=== PATIENT | female | born 1965 | race Caucasian/White ===

== ENCOUNTER 2022-08-18 16:28 | Emergency (ER) | payer BC, SELFPAY ==
--- NOTE | ~2022-08-18 | CT_ITS ---
EXAMINATION: CT lumbar spine wo con DATE: 08/18/2022 17:38 INDICATION: Chronic back pain worsening in the last few days TECHNIQUE: Computed tomography (CT) of the lumbar spine was performed without intravenous contrast. T he dose Jan The dose-length product was 1226.82 mGy-cm. COMPARISON: 02/20/2013 FINDINGS: Alignment is normal. Chronic minimal likely physiologic anterior wedging at T11 and T12. Lumbar verte bral body heights are normal. No fracture. Lucent T12 hemangioma with thickened vertical central trab ecula. Mild disc height loss at T11-T12 and L5-S1. Paravertebral soft tissues are unremarkable. The f ollowing disc levels are specifically discussed: T11-T12: The disc does not extend beyond the endplate margin. There is moderate bilateral facet joint osteoarthritis. There is mild left neural foraminal stenosis. There is no central canal stenosis. T12-L1: The disc does not extend beyond the endplate margin. There is mild bilateral facet joint oste oarthritis. There is no neural foraminal stenosis. There is no central canal stenosis. L1-L2: The disc does not extend beyond the endplate margin. There is mild bilateral facet joint osteo arthritis. There is no neural foraminal stenosis. There is no central canal stenosis. L2-L3: The disc does not extend beyond the endplate margin. There is mild bilateral facet joint osteo arthritis. There is no neural foraminal stenosis. There is no central canal stenosis. L3-L4: The disc does not extend beyond the endplate margin. There is mild bilateral facet joint osteo arthritis. There is no neural foraminal stenosis. There is no central canal stenosis. L4-L5: Disc is mildly bulging. There is moderate bilateral facet joint osteoarthritis. There is mild bilateral neural foraminal stenosis. There is mild central canal stenosis. L5-S1: Disc is bulging. There is mild bilateral facet joint osteoarthritis. There is mild bilateral n eural foraminal stenosis. There is no central canal stenosis. IMPRESSION: 1. Mild lumbar spondylosis. No acute abnormality. Reviewed, dictated and finalized at location A. [employer]
[2022-08-18 16:30] VITALS: BP 146/93; PULSE 82; RESP 16; TEMP 36.1; O2SAT 98
--- NOTE | 2022-08-18 16:32 | ED.BACK ---
HPI - Back Pain/Injury General Chief Complaint: Back Pain/Injury Stated Complaint: back pain Time Seen by Provider: 08/18/22 16:31 Source: patient and RN notes reviewed Mode of arrival: ambulatory Limitations: no limitations History of Present Illness HPI Narrative: patient has a history of chronic back pain has had SI joint injections bilaterally and has had a lumbar radiofrequency ablation. She has been having back pain for the last 3 days. Some radiation down both legs. No numbness or tingling currently. MD elicited complaint: back pain Pertinent past history: prior back pain Onset (ago): day(s) (3-4) Timing: intermittent Severity: moderate Similar Symptoms Previously: Yes Location: lumbar spine Radiation: left leg below the knee and right leg below the knee Exacerbating factors: movement and walking Relieving factors: other (rest) Associated symptoms: numbness ( resolved now) Treatments prior to arrival: prescription analgesics ( Vicodin) Related Data Home Medications Medication Instructions Recorded Confirmed fluoxetine 10 mg capsule (Prozac) 10 mg PO DAILY 08/18/22 08/18/22 hydrochlorothiazide 25 mg tablet 25 mg PO DAILY 08/18/22 08/18/22 hydrocodone 10 mg-acetaminophen 1 tablet PO Q6-8H PRN Pain 08/18/22 08/18/22 325 mg tablet levothyroxine 100 mcg tablet 100 mcg PO DAILY 08/18/22 08/18/22 metoprolol succinate 50 mg 50 mg PO DAILY 08/18/22 08/18/22 tablet,extended release 24 hr omeprazole 40 mg capsule,delayed 40 mg PO BID 08/18/22 08/18/22 release Allergies Allergy/AdvReac Type Severity Reaction Status Date / Time No Known Allergies Allergy Verified 08/18/22 16:35 Review of Systems Review of Systems: All systems reviewed & are unremarkable except as noted in HPI and below PMFSH Past Medical History Medical History (Updated 08/18/22 @ 18:47 by Domingo Tucker MD) Chronic back pain Morbid obesity Surgical History Surgical History (Updated 08/18/22 @ 16:34 by Domingo Tucker MD) History of total abdominal hysterectomy Social History Social History (Updated 08/18/22 @ 16:33 by Domingo Tucker MD) Smoking status: Never smoker Exam Const: General: healthy appearing, no acute distress and alert Nutritional Appearance: well nourished and obese morbidly obese Orientation/consciousness: patient oriented x3 Limitations: no limitations HENMT: Head: normal to inspection Ears: external ears normal Eyes: Conjunctivae: conjunctivae normal Pupils: Equal, round and reactive pupils present EOM: EOMs intact bilaterally Neck: Neck: normal visual inspection Resp: Effort & Inspection: normal respiratory effort Auscultation: clear to auscultation bilaterally Cardio: Rate: regular rate Rhythm: regular rhythm GI: GI Palp: Yes Soft to palpation and No Tenderness to palpation present (GI) Auscultation: normal bowel sounds Back/Spine/Pelvis: Cervical Spine: cervical ROM normal Thoracic/Lumbar Spine: pain with thoraco-lumbar ROM, paraspinal muscle tenderness bilaterally in the lower lumbar, thoraco-lumbar ROM limited ( pain with side to side flexion otherwise normal range of motion), lumbar spinal tenderness at L4 and at L5 and No straight leg raise positive Neuro: General: patient oriented x3, moves all extremities, no focal motor deficits and CN's II-XI intact bilaterally Speech: normal speech Gait exam (Neuro): Normal gait present Deep tendon reflexes (DTR's): Right patellar reflex intensity grade: 2+, Left patellar reflex intensity grade: 2+, Right ankle reflex intensity grade: 2+ and Left ankle reflex intensity grade: 2+ Extrem: General: normal to inspection and no clubbing, cyanosis or edema Psych: Mental Status: mental status grossly normal Affect: normal affect Attitude: cooperative Course Vital Signs Vital signs: Vital Signs Temperature 36.1 C L 08/18/22 16:30 Pulse Rate 82 08/18/22 16:30 Respiratory Rate 16 08/18/22 16:30 Blood Pressure 146/93 H 08/18/22 1
[2022-08-18 18:50] VITALS: BP 158/100; PULSE 74; RESP 16; TEMP 36.4; O2SAT 99
== END 2022-08-18 18:54 | disposition home or self-care (01) ==
PROVIDERS: Emergency Provider Emergency Medicine
DX: M51.36 Other intervertebral disc degeneration, lumbar region (principal); Z79.891 Long term (current) use of opiate analgesic
CPT/HCPCS: 72131; 99284

== ENCOUNTER 2024-08-28 04:19 | Emergency (ER) | payer OTHER, SELFPAY ==
[2024-08-28 04:20] VITALS: BP 141/96; PULSE 128; RESP 18; TEMP 36.2; O2SAT 97
--- OUTSIDE RECORDS SUMMARY | 2024-08-28 04:21 | XMS_ITS | Clinical Summary ---
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 Name Role Phone CONRADO ARBOLEDA MD Primary Care Provider [phone] Reason for Visit and Chief Complaint The Chief Complaint is: RECHECK BP Problems Includes: Problems addressed during this encounter and other active Problems Current Visit Onset Date Resolved Date Provider Condbettyo n Status Essential Hypertension Benign 12/17/2009 SEAN ABBOTT PA-C Active Last Documented On 12/17/2009 3:58PM ; [facility] Note: Unchanged Obesity 12/17/2009 SEAN ABBOTT PA-C Active Last Documented On 12/17/2009 3:58PM ; [facility] Note: Unchanged Past Visits Onset Date Resolved Date Provider Condition Status Chronic Pain Syndrome 10/13/2022 SPENCER DUBOIS PA-C Active Last Documented On 3 3:22PM ; [facility] Persistent Depressive Disord er (Dysthymia) 10/13/2022 SPENCER DUBOIS PA-C Active Last Documented On 3 3:22PM ; [facility] 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 10/13/2022 SPENCER DUBOIS PA-C Active Last Documented On 3 3:22PM ; [facility] Sacroiliitis 10/13/2022 SPENCER DUBOIS PA- C Active Last Documented On 3 3:22PM ; [facility] Vitamin D Deficiency 06/15/2022 SPENCER MARTINEZ PA-C Active Last Documented On 2 4:52PM ; [facility] Chronic Low Back Pain 10/02/2016 CLEMENT BARDALES PMHNP-BC 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 Active Last Documented On 7 10:22AM ; [facility] Hypothyroidism 02/03/2010 SEAN ABBOTT PA-C Active Last Documented On 0 2:42PM ; [facility] Note: Unchanged Persistent Insomnia 02/03/2010 SEAN ABBOTT PA-C Active Last Documented On 0 2:42PM ; [facility] Note: Unchanged Gerd 12/17/2009 DANIEL MCCARTY SHOW JUMPING INSTRUCTOR-C Activ e Last Documented On 1 2:35PM ; [facility] Note: Unchanged Hyperlipidemia 12/17/2009 SEAN ABBOTT PA-C Active Last Documented On 0 3:58PM ; [facility] Note: Unchanged Plan of Treatment - Return to the clinic if condition worsens or new symptoms arise - Last Documented On 10/29/2023 4:30PM ; [facility] - Follow-up visit as needed with an office visit. - Last Documented On 10/29/2023 4:30PM ; [facility] - Patient to call if problem develops - Last Documented On 10/29/2023 4:30PM ; [facility] Assessments Includes: Assessments from this encounter Findings - [I10 - Essential (primary) hypertension] Benign essential hypertension - Last Documented On 10/29/2023 4:30PM ; [facility] - [E66.9 - Obesity, unspecified] Obesity - Last Documented On 10/29/2023 4:30PM ; [facility] - [M72.2 - Plantar fascial fibromatosis] Plantar fasciitis of right foot - Last Documented On 10/29/2023 4:30PM ; [facility] Medical Equipment - Implanted Devices Includes: Current Devices No Medical Equipment Recorded Medications Includes: Medications discussed during this encounter and other current Medications New / Renewed during this visit SPENCER DUBOIS PA-C on 10/29/2023 amLODIPine Besylate 2.5 MG Oral Tablet Provider: SPENCER DUBOIS PA-C 30 day supply: 30 tablet, 5 refills Diagnosis: Essential (primary) hypertension One tablet daily Pharmacy: [facility] [address], [address] - Last Documented On 4 4:38PM By SPENCER DUBOIS PA-C ; [facility] Current Medications (continue as prescribed) HYDROcodone-Acetaminophen 5- 325 MG Oral Tablet 12/24/2023 Provider: EDWARD VALLEJO Diagnosis: Spinal stenosis, lumbar region with neurogenic claudication One tablet twice a day as ne eded for severe pain Last Documented On 4 11:32AM By EDWARD VALLEJO ; [facility] Advil Dual Action 125-250 MG Oral Tablet 06/21/2023 Provider: Diagnosis: Last Documented On 06/21/2023 4:08PM By Aruna KINSEY ; [facility] Past Medications on file DULoxetine HCl 30 MG Oral Capsule Delayed Release Particles 11/01/2023 - 04/29/2024 Provider: SPENCER DUBOIS PA-C Diagnosis: Chronic pain syndrome TAKE 1 CAPSULE BY MOUTH DAILY Last Documented On 4 7:52AM By SPENCER DUBOIS PA-C ; [facility] Omeprazole 40 MG Oral Capsule Delayed Release 08/19/2023 - 02/15/2024 Provider: SPENCER RICKS PA-C Diagnosis: TAKE 1 CAPSULE BY MOUTH EVERY MORNING Last Documented On 4 7:48AM By SPENCER DUBOIS PA-C ; [facility] Levothyroxine Sodium 100 MCG Oral Tablet 07/20/2023 - 01/16/2024 Provider: SPENCER DUBOIS PA-C Diagnosis: Hypothyroidism, unspecified TAKE 1 TABLET BY MOUTH DAILY Last Documented On 4 9:52AM By SPENCER DUBOIS PA-C ; [facility] hydroCHLOROthiazide 25 MG Oral Tablet 06/25/2023 - 12/22/2023 Provider: SPENCER DUBOIS PA-C Diagnosis: Chest pain, unspecified One tablet daily Last Documented On 3 10:01AM By SPENCER DUBOIS PA-C ; [facility] Metoprolol Succinate ER 100 MG Oral Tablet Extended Release 24 Hour 06/25/2023 - 12/22/2023 Provider: SPENCER DUBOIS PA-C Diagnosis: Chest pain, unspecified One tablet daily Last Documented On 3 10:01AM By SPENCER DUBOIS PA-C ; [facility] FLUoxetine HCl 20 MG Oral Tablet 10/13/2022 - 10/28/2022 Provider: SPENCER DUBOIS PA-C Diagnosis: Dysthymic disord er 1 tab QD x7 days, then 1/2 t ab QD x8 days, then stop - weaning off Last Documented On 3 3:22PM By SPENCER DUBOIS PA-C ; [facility] Amoxicillin-Pot Clavulanate 875-125 MG Oral Tablet 06/15/2022 - 06/25/2022 Provider: SPENCER DUBOIS PA-C Diagnosis: Acute maxillary sinusitis, unspecified One tablet twice a day Last Documented On 2 4:59PM By SPENCER DUBOIS PA-C ; [facility] Ondansetron HCl 4 MG Oral Tablet 12/30/2021 - 01/06/2022 Provider: SPENCER SIMMONS PA-C Diagnosis: Nausea 1 every 6 hours as needed Last Documented On 2 4:40PM By SPENCER DUBOIS PA-C ; [facility] Medications Administered Includes: Administered Medications from this encounter No Administered Medications Recorded Vital Signs Includes: Vital Signs from this encounter Vital Name 10/29/2023 04:07P Blood Pressure Sitting (mmHg) 110/88 Pulse Rate-Sitting (bpm) 94 Respiration Rate (breaths/min) 20 Temp-Oral (F) 98.1 Height (in) 64.5 Weight (lb) 248 Body Mass Index 41.9 Body Surface Area 2.2 Last Documented: On 10/29/2023 4:11PM ; [facility] Results Includes: Results discussed during this encounter No Results Recorded For Specified Dates History of Present Illness Includes: History of Present Illness from this encounter GRACE BARRAZA is a 58 year old female. Source of patient information was patient ? Allergy list reviewed ? Medication list reviewed - No headache - No vision problems - No chest pain or discomfort - No palpitations - No dyspnea - No cough - No vomiting - No abdominal pain - No diarrhea - No constipation - No bowel/bladder changes - No dizziness - No lightheadedness - No skin symptoms Feeling so much better. BP good at home when she checks it. Social History Description Last Updated Consuming 5 or more drinks per day None 10/29/2023 Last Documented On 4 4:30PM ; [facility] Not recovering alcoholic 10/29/2023 Last Documented On 4 4:30PM ; [facility] Not recovering from substance abuse 10/10 Last Documented On 4 4:30PM ; [facility] Number of times used recreat ional drug/ prescription drug for nonmedical reason. None 10/29/2023 Last Documented On 4 4:30PM ; [facility] Tobacco non-user 09/16/2023 Last Documented On 4 4:09PM ; [facility] No consumption of alcohol 01/22/2022 Last Documented On 4 4:09PM ; [facility] Not using drugs 01/22/2022 Last Documented On 4 4:09PM ; [facility] Difficulty walking 11/24/2021 Last Documented On 4 4:09PM ; [facility] Non-smoker 11/22/2019 Last Documented On 4 4:09PM ; [facility] No caffeine use 09/10/2011 Last Documented On 4 4:09PM ; [facility] Poor exercise habits 09/10/2011 Last Documented On 4 4:09PM ; [facility] Sexually active 09/10/2011 Last Documented On 4 4:09PM ; [facility] Sexually active with 2 partners in the l ast year 09/10/2011 Last Documented On 4 4:09PM ; [facility] Social history unchanged 09/04/2009 Last Documented On 4 4:09PM ; [facility] 06/04/2009 Last Documented On 4 4:09PM ; [facility] Smoking Status Unknown Procedures and Surgical History Includes: Procedures from this encounter Procedures Code Diagnosis Performing Provider Service L ocation Service Date medication instruction Last Documented On 4 4:10PM ; [facility] continue current medication Last Documented On 4 4:10PM ; [facility] plan of care reviewed and agreed to Last Documented On 4 4:10PM ; [facility] risks, benefits, and limitations discuss ed and understood Last Documented On 4 4:10PM ; [facility] review of medications documented 1160F Last Documented On 4 4:11PM ; [facility] Clinical summary provided to patient Last Documented On 4 4:10PM ; [facility] Medical History Includes: Medical History addressed during this encounter No Medical History Recorded Family History Includes: Family History addressed during this encounter Description Last Updated Maternal history of Arthritis 01/22/2022 Last Documented On 4 4:09PM ; [facility] Maternal history of family history of is chemic heart disease 01/22/2022 Last Documented On 4 4:09PM ; [facility] Paternal history of family history of is chemic heart disease 01/22/2022 Last Documented On 4 4:09PM ; [facility] Paternal history of stroke/paralysis Last Documented On 4 4:09PM ; [facility] Family history unchanged 10/02/2016 Last Documented On 4 4:09PM ; [facility] Maternal history of hypertension 016 Last Documented On 4 4:09PM ; [facility] Maternal history of thyroid disorder 12/2015 Last Documented On 4 4:09PM ; [facility] Paternal history of heart disease 2015 Last Documented On 4 4:09PM ; [facility] Paternal history of hypertension 016 Last Documented On 4 4:09PM ; [facility] Heart disease 06/04/2009 Last Documented On 4 4:09PM ; [facility] Review of Systems Includes: Review of Systems from this encounter Head: No headache. Cardiovascular: No chest pain or discomfort. Pulmonary: No dyspnea. Gastrointestinal: Normal appetite. Endocrine: No excessive sweating. Neurological: No dizziness. Mental Status Includes: Mental Status from this encounter Description Oriented to time, place, and person Functional Status Includes: Functional Status from this encounter No Functional Status Recorded Physical Exam Includes: Physical Exam from this encounter Allergies Includes: Active Allergies No Known Allergies Encounters Encounter Provider Location Date Check-In Time Check-Out Time Diagnosis CHECK UP SPENCER DUBOIS PA-C [facility] 10/29/19 24 4:06PM 4:25PM Essential Hypertension Benign,Plantar Fasciitis Right,Obesity Insurance Includes: Active Insurance Policies Plan Name Member ID Group # Subscriber Relationship Effect collette Dates - [id number] SAMI BARRAZA Self Clinical Notes Includes: Clinical Notes from this encounter * Progress note Date Encounter Last Documented by 10/29/2023 CHECK UP Last documented on 10/29/2023; 4:30 PM, SPENCER DUBOIS PA-C; [facility] Active Problems & Conditions - M54.5 - Chronic Low Back Pain - G89.4 - Chronic Pain Syndrome - I10 - Essential Hypertension Benign - K21.9 - Gerd - E78.5 - Hyperlipidemia - E03.9 - Hypothyroidism - E66.9 - Obesity - F34.1 - Persistent Depressive Disorder (Dysthymia) - G47.00 - Persistent Insomnia - M46.1 - Sacroiliitis - M47.816 - 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 - E55.9 - Vitamin D Deficiency Chief Complaint The Chief Complaint is: RECHECK BP. History of Present Illness SAMI BARRAZA is a 58 year old female. Source of patient information was patient - Allergy list reviewed - Medication list reviewed - No headache - No vision problems - No chest pain or discomfort - No palpitations - No dyspnea - No cough - No vomiting - No abdominal pain - No diarrhea - No constipation - No bowel/bladder changes - No dizziness - No lightheadedness - No skin symptoms Feeling so much better. BP good at home when she checks it. Current Medication - Advil Dual Action 125-250 MG Oral Tablet as needed 0 days, 0 refills - amLODIPine Besylate 2.5 MG Oral Tablet One tablet daily, 30 days, 0 refills - hydroCHLOROthiazide 25 MG Oral Tablet One tablet daily, 90 days, 1 refills - HYDROcodone-Acetaminophen 5-325 MG Oral Tablet One tablet twice a day as needed for severe pain, 30 days, 0 refills - Levothyroxine Sodium 100 MCG Oral Tablet TAKE 1 TABLET BY MOUTH DAILY, 30 days, 5 refills - Metoprolol Succinate ER 100 MG Oral Tablet Extended Release 24 Hour One tablet daily, 90 days, 1 refills - Omeprazole 40 MG Oral Capsule Delayed Release TAKE 1 CAPSULE BY MOUTH EVERY MORNING, 90 days, 1 refills Social History Difficulty walking. Social history unchanged. Caffeine use: No caffeine use. Tobacco use: Tobacco non-user and non-smoker. Alcohol: No consumption of alcohol. Consuming 5 or more drinks per day None. Not recovering alcoholic. Drug Use: Not using drugs and not recovering from substance abuse. Number of times used recreational drug/ prescription drug for nonmedical reason. None. Habits: Poor exercise habits. Marital: . Sexual: Sexually active with 2 partners in the last year. Allergies - No Known Allergies Family History Heart disease Family history unchanged Paternal: Stroke/paralysis Ischemic heart disease Systemic hypertension Heart disease Maternal: Arthritis Ischemic heart disease Systemic hypertension Thyroid disorder Review Of Systems Head: No headache. Cardiovascular: No chest pain or discomfort. Pulmonary: No dyspnea. Gastrointestinal: Normal appetite. Endocrine: No excessive sweating. Neurological: No dizziness. Physical Findings - Vitals taken 10/29/2023 04:07 pm BP-Sitting 110/88 mmHg Pulse Rate-Sitting 94 bpm Respiration Rate 20 per min Temp-Oral 98.1 F Height 64.5 in Weight 248 lbs Body Mass Index 41.9 kg/m2 Body Surface Area 2.2 m2 General Appearance: - Alert. - Well developed. - Well nourished. - In no acute distress. Eyes: General/bilateral: Extraocular Movements: - Normal. Pupils: - PERRLA. Ears: General/bilateral: External Auditory Canal: - External auditory meatus normal. Hearing Exam: - No hearing loss noted. Nose: General/bilateral: Discharge: - No nasal discharge. Pharynx: Oropharynx: - Normal. - Tonsils showed no abnormalities. Lungs: - Clear to auscultation. Cardiovascular: Heart Rate And Rhythm: - Normal. Heart Sounds: - Normal. Murmurs: - No murmurs were heard. Musculoskeletal System: Foot: Right Foot: - A plantar fasciitis test elicited pain in the heel. Neurological: - Oriented to time, place, and person. Gait And Stance: - Normal. Skin: - General appearance was normal. - Color and pigmentation were normal. - Moisture was normal. - Temperature was normal. Assessment - [I10 - Essential (primary) hypertension] Benign essential hypertension - [E66.9 - Obesity, unspecified] Obesity - [M72.2 - Plantar fascial fibromatosis] Plantar fasciitis of right foot Therapy - Risks, benefits, and limitations discussed and understood. - Medication instruction. - Continue current medication. - Clinical summary provided to patient. - Plan of care reviewed and agreed to. Stretches for plantar fasciitis: In the seated plantar fascia-specific stretching technique, the patient firmly grasps the toes and simultaneously dorsiflexes the toes and foot, thereby stretching the plantar fascia and the Achilles-soleus complex. The patient should hold this position for 10 seconds and release for 10 seconds, for a total of 10 repetitions. This exercise can also be done in the standing position with the knee slightly bent with the toes pressing against a wall. To focus on the Achilles tendon and gastrocnemius muscle, the patient can use a towel with the leg straight pulling the foot toward the body. Other helpful stretches are to fill a liter bottle with water, freeze it, and roll it back and forth under the affected foot. This will not only stretch the fascia but also ice it. This can similarly be done by rolling a tennis ball under the foot. Discussed The patient has been diagnosed with plantar fasciitis. The planter fascia is a dense, fibrous membrane spanning the length of the foot. It originates at the medial calcaneal tubercle, attaches to the phalanges, and provides stability and arch support to the foot. Predisposing factors can include: overtraining, obesity, pes planus, decreased ankle dorsiflexion, and inappropriate footwear. Severe heel pain upon initial weight bearing in the morning or after prolonged periods of inactivity is pathognomonic. Conservative treatment includes NSAIDS (Ibuprofen, Aleve, etc,), stretching, and prefabricated orthotics. Foot orthotics help prevent overpronation and attenuate tensile forces on the plantar fascia. Night splints help keep the foot and ankle in neutral position or slightly dorsiflexed while the patient sleeps. It may take 6-12 months for symptoms to resolve completely. Plan StartCited - Essential (primary) hypertension amLODIPine Besylate 2.5 MG tablet One tablet daily, 30 days, 5 refills EndCited - Return to the clinic if condition worsens or new symptoms arise - Follow-up visit as needed with an office visit. - Patient to call if problem develops Practice Management Review of medications documented. Health Reminders - Assess Blood Pressure satisfied 10/29/2023. - Assess BMI satisfied 10/29/2023. - Assess Need for CT Lung Screen satisfied 09/16/2023. - Assess Tobacco Use satisfied 09/16/2023.
--- OUTSIDE RECORDS SUMMARY | 2024-08-28 04:21 | XMS_ITS | Clinical Summary ---
Author Organization [facility] Address [address] [place] [address] Care Team Providers Care Traffic Signal Repairer Name Role Phone Georgette Corado PA-C Primary Care Provider Danyel Perez MD Unavailable [phone] Allergies No known active allergies Medications DULoxetine (CYMBALTA) 30 MG capsule Take 1 capsule (30 mg total) by mouth daily. Active ezetimibe (ZETIA) 10 MG tablet Take 1 tablet (10 mg total) by mouth daily. Active HYDROcodone-emmanuelle taminophen (NORCO) 10-325 MG tablet Take 0.5 tablets by mouth every 6 (six) hours as needed for Pain. Active levothyroxine (SYNTHROID) 100 MCG tablet Take 1 tablet (100 mcg total) by mouth every morning. Active omeprazole (PRILOSEC) 40 MG capsule Take 1 capsule (40 mg total) by mouth daily. Active metoprolol succinate ER (TOPROL-XL) 100 MG 24 hr tablet Take 1 tablet (100 mg total) by mouth daily. Active hydroCHLOROthia zide (HYDRODIURIL) 25 MG tablet Take 1 tablet (25 mg total) by mouth every morning. Active Active Problems Problem Noted Date Diagnosed Date Hx of chest pain 07/19/2023 Class 3 severe obesity due t o excess calories without serious comorbidity with body mass index (BMI) of 40.0 to 44.9 in adult ([facility]) 07/19/2023 Costochondritis 07/19/2023 Essential (primary) hypertension Hyperlipidemia Resolved Problems Problem Noted Date Diagnosed Date Resolved Date Encounter to establish care 07/19/2023 07/26/2023 Social History Tobacco Use Types Packs/Day Years Used Date Smoking Tobacco: Never Alcohol Use Standard Drinks/Week Comments Never 0 (1 standard drink = 0.6 oz pur e alcohol) Comments Unknown Sex and Gender Information Value Date Recorded Sex Assigned at Not on file Legal Sex Female 9:20 PM CDT Gender Identity Not on file Sexual Orientation Not on file Last Filed Vital Signs Vital Sign Reading Time Taken Comments Blood Pressure 124/94 07/19/2023 2:41 PM HEEL EMERY BUFFER Pulse 72 07/19/2023 2:37 PM HEEL EMERY BUFFER Temperature - - Respiratory Rate 16 07/19/2023 2:37 PM HEEL EMERY BUFFER Oxygen Saturation 100% 07/19/2023 2:37 PM HEEL EMERY BUFFER Inhaled Oxygen Concentration - - Weight 112.8 kg (248 lb 9.6 oz) 07/19/2023 2:37 PM HEEL EMERY BUFFER Height 161.3 cm (5' 3.5 ) 07/19/2023 2:37 PM HEEL EMERY BUFFER Body Mass Index 43.35 07/19/2023 2:37 PM HEEL EMERY BUFFER Plan of Treatment Health Maintenance Due Date Last Done Comments Cervical Cancer Screening Pa p Smear (Age 30 to 64) Every 3 Years 1964 Colorectal Cancer Screening Colonoscopy (10 Years) 1964 Annual Physical 02/08/1967 Hepatitis C 02/08/1982 DTaP, Tdap and Td Vaccines ( 1 - Tdap) 02/08/1983 Cervical Cancer Screening Pa p with HPV Testing (Age 30 to 64) Every 5 Years 02/08/1994 Cervical Cancer Screening with HPV 02/08/1994 Mammogram Screening 2004 Zoster Vaccines (1 of 2) 02/08/2014 RSV Immunization or 60+ Years (1 - Risk 60-74 years 1-dose series) 2024 COVID-19 Vaccine (1 - 2023-2 5 season) 2024 Influenza Adult (#1) 2024 Meningococcal B Vaccine Aged Out No l onger eligible based on patient's age to complete this topic Meningococcal Vaccine Aged Out No stefanie miguel eligible based on patient's age to complete this topic Pneumococcal Vaccine: Pediat rics (0 to 5 Years) and At-Risk Patients (6 to 64 Years) Aged Out No longer eligible b ased on patient's age to complete this topic RSV Immunizations Under 20 Months Aged Out No longer eligible based on patient's age to complete this topic Insurance [facility] Care Teams Traffic Signal Repairer Relationship Specialty Start Date End Date Georgette Corado PA-C [address] [place] [address] [phone] PCP - General PHYSICIAN DIESEL FITTER MECHANIC 06/29/23 Danyel Perez MD [address] [facility] [id number] [place] [address] Physician INTERVENTIONAL CARDIOLOGY 06/30/23
--- OUTSIDE RECORDS SUMMARY | 2024-08-28 04:21 | XMS_ITS | Clinical Summary ---
Author Organization [facility] Address [address] [place] [address] Phone Care Team Providers Care Rubber Goods Assembler Name Role Phone CONRADO ARBOLEDA MD Primary Care Provider [phone] Reason for Visit and Chief Complaint RX ISSUE/REFILL Problems Includes: Problems addressed during this encounter and other active Problems All Visits Onset Date Resolved Date Provider Condition S tatus Chronic Pain Syndrome 10/13/2022 SPENCER DUBOIS PA-C Active Last Documented On 3 3:22PM ; [facility] Persistent Depressive Disord er (Dysthymia) 10/13/2022 SPENCER SIMEON-Solange Active Last Documented On 3 3:22PM ; [facility] 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 10/13/2022 SPENCER SIMEON-C Active Last Documented On 3 3:22PM ; [facility] Sacroiliitis 10/13/2022 SPENCER SIMEON- C Active Last Documented On 3 3:22PM ; [facility] Vitamin D Deficiency 06/15/2022 SPENCER SIMEON-Solange Active Last Documented On 2 4:52PM ; [facility] Chronic Low Back Pain 10/02/2016 CLEMENT BARDALES PMHNP-BC [employer]OCIATE-BC Active Last Documented On 7 10:22AM ; [facility] Hypothyroidism 02/03/2010 SEAN ABBOTT PA-C Active Last Documented On 0 2:42PM ; [facility] Note: Unchanged Persistent Insomnia 02/03/2010 SEAN ABBOTT PA-C Active Last Documented On 0 2:42PM ; [facility] Note: Unchanged Gerd 12/17/2009 DANIEL MCCARTY SALES AND SERVICE ASSOCIATE-C Activ e Last Documented On 1 2:35PM ; [facility] Note: Unchanged Hyperlipidemia 12/17/2009 SEAN ABBOTT PA-C Active Last Documented On 0 3:58PM ; [facility] Note: Unchanged Essential Hypertension Benign 12/17/2009 SEAN ABBOTT PA-C Active Last Documented On 0 3:58PM ; [facility] Note: Unchanged Obesity 12/17/2009 SEAN SIMEON-C Acti ve Last Documented On 0 3:58PM ; [facility] Note: Unchanged Plan of Treatment No Plan of Treatment Recorded Assessments Includes: Assessments from this encounter No Assessments Recorded Medical Equipment - Implanted Devices Includes: Current Devices No Medical Equipment Recorded Medications Includes: Medications discussed during this encounter and other current Medications New / Renewed during this visit EDWARD VALLEJO on 12/24/2023 HYDROcodone-Acetaminophen 5- 325 MG Oral Tablet Provider: EDWARD VALLEJO 30 day supply: 60 tablet, 0 refills Diagnosis: Spinal stenosis, lumbar region with neurogenic claudication One tablet twice a day as ne eded for severe pain Pharmacy: [address], [phone] - Last Documented On 4 11:32AM By EDWARD VALLEJO ; [facility] Current Medications (continue as prescribed) Advil Dual Action 125-250 MG Oral Tablet 06/21/2023 Provider: Diagnosis: Last Documented On 06/21/2023 4:08PM By Aruna KINSEY ; [facility] Past Medications on file DULoxetine HCl 30 MG Oral Capsule Delayed Release Particles 11/01/2023 - 04/29/2024 Provider: SPENCER DUBOIS PA-C Diagnosis: Chronic pain syndrome TAKE 1 CAPSULE BY MOUTH DAILY Last Documented On 4 7:52AM By SPENCER DUBOIS PA-C ; [facility] amLODIPine Besylate 2.5 MG Oral Tablet 10/29/2023 - 04/26/2024 Provider: SPENCER DUBOIS PA-C Diagnosis: Essential (prima ry) hypertension One tablet daily Last Documented On 4 4:38PM By SPENCER DUBOIS PA-C ; [facility] Omeprazole 40 MG Oral Capsule Delayed Release 08/19/2023 - 02/15/2024 Provider: SPENCER RICKS PA-C Diagnosis: TAKE 1 CAPSULE BY MOUTH EVERY MORNING Last Documented On 4 7:48AM By SPENCER DUBOIS PA-C ; [facility] Levothyroxine Sodium 100 MCG Oral Tablet 07/20/2023 - 01/16/2024 Provider: SPENCER DUBOIS PA-C Diagnosis: Hypothyroidism, unspecified TAKE 1 TABLET BY MOUTH DAILY Last Documented On 4 9:52AM By SPENCER DUBOIS PA-C ; [facility] hydroCHLOROthiazide 25 MG Oral Tablet 06/25/2023 - 12/22/2023 Provider: SPENCER DUBOIS PA-C Diagnosis: Chest pain, unspecified One tablet daily Last Documented On 3 10:01AM By SPENCER DUBOIS PA-C ; [facility] Metoprolol Succinate ER 100 MG Oral Tablet Extended Release 24 Hour 06/25/2023 - 12/22/2023 Provider: SPENCER DUBOIS PA-C Diagnosis: Chest pain, unspecified One tablet daily Last Documented On 3 10:01AM By SPENCER DUBOIS PA-C ; [facility] FLUoxetine HCl 20 MG Oral Tablet 10/13/2022 - 10/28/2022 Provider: SPENCER DUBOIS PA-C Diagnosis: Dysthymic disord er 1 tab QD x7 days, then 1/2 t ab QD x8 days, then stop - weaning off Last Documented On 3 3:22PM By SPENCER DUBOIS PA-C ; [facility] Amoxicillin-Pot Clavulanate 875-125 MG Oral Tablet 06/15/2022 - 06/25/2022 Provider: SPENCER DUBOIS PA-C Diagnosis: Acute maxillary sinusitis, unspecified One tablet twice a day Last Documented On 2 4:59PM By SPENCER DUBOIS PA-C ; [facility] Ondansetron HCl 4 MG Oral Tablet 12/30/2021 - 01/06/2022 Provider: SPENCER SIMMONS PA-C Diagnosis: Nausea 1 every 6 hours as needed Last Documented On 2 4:40PM By SPENCER DUBOIS PA-C ; [facility] Medications Administered Includes: Administered Medications from this encounter No Administered Medications Recorded Results Includes: Results discussed during this encounter No Results Recorded For Specified Dates History of Present Illness Includes: History of Present Illness from this encounter HPI Pharmacy name:~location:[facility]. Social History Description Last Updated Consuming 5 or more drinks per day None 10/29/2023 Last Documented On 4 11:06AM ; [facility] Number of times used recreat ional drug/ prescription drug for nonmedical reason. None 10/29/2023 Last Documented On 4 11:06AM ; [facility] Tobacco non-user 09/16/2023 Last Documented On 4 11:06AM ; [facility] Difficulty walking 11/24/2021 Last Documented On 4 11:06AM ; [facility] Non-smoker 11/22/2019 Last Documented On 4 11:06AM ; [facility] Poor exercise habits 09/10/2011 Last Documented On 4 11:06AM ; [facility] Sexually active 09/10/2011 Last Documented On 4 11:06AM ; [facility] Sexually active with 2 partners in the l ast year 09/10/2011 Last Documented On 4 11:06AM ; [facility] Social history unchanged 09/04/2009 Last Documented On 4 11:06AM ; [facility] 06/04/2009 Last Documented On 4 11:06AM ; [facility] Smoking Status Unknown Medical History Includes: Medical History addressed during this encounter Description Last Updated Moderate to severe pain 01/22/2022 Last Documented On 4 11:06AM ; [facility] Please list all illnesses/co nditions you have been diagnosed with: Hypothyroidismhypertensiondepressionchronic low back pain 01/22/2022 Last Documented On 4 11:06AM ; [facility] Please list all surgeries: Carpal tunnel bilateral Hysterectomy 01/22/2022 Last Documented On 4 11:06AM ; [facility] Wearing contact lenses 01/22/2022 Last Documented On 4 11:06AM ; [facility] X-rays November 20low [facility] 01/22/2022 Last Documented On 4 11:06AM ; [facility] No recent change in medical history 09/10 Last Documented On 4 11:06AM ; [facility] Aborta 2 09/10/2011 Last Documented On 4 11:06AM ; [facility] Last mammogram date: approx 7 yrs ago Last Documented On 4 11:06AM ; [facility] 4 09/10/2011 Last Documented On 4 11:06AM ; [facility] Last pap smear date 03/05/2010 09/10/2011 Last Documented On 4 11:06AM ; [facility] LMP: 09/05/2011 09/10/2011 Last Documented On 4 11:06AM ; [facility] Para 2 09/10/2011 Last Documented On 4 11:06AM ; [facility] A mammogram was performed Had one at age 39 09/24/2010 Last Documented On 4 11:06AM ; [facility] History of essential hypertension 2009 Last Documented On 4 11:06AM ; [facility] History of hyperlipidemia 02/03/2010 Last Documented On 4 11:06AM ; [facility] Family History Includes: Family History addressed during this encounter No Family History Recorded Review of Systems Includes: Review of Systems from this encounter No Review of Systems Recorded Mental Status Includes: Mental Status from this encounter No Mental Status Recorded Functional Status Includes: Functional Status from this encounter No Functional Status Recorded Physical Exam Includes: Physical Exam from this encounter No Physical Exam Recorded Allergies Includes: Active Allergies No Known Allergies Encounters Encounter Provider Location Date Check-In Time Check-Out Time Diagnosis RX ISSUE/REFILL EDWARD VALLEJO 12/24/2023 11:06AM 11:59PM Insurance Includes: Active Insurance Policies Plan Name Member ID Group # Subscriber Relationship Effect collette Dates - [id number] SAMI BARRAZA Self Clinical Notes Includes: Clinical Notes from this encounter * Progress note Date Encounter Last Documented by 12/24/2023 RX ISSUE/REFILL Last documented on 12/24/2023; 11:29 AM, EDWARD MOSQUERA-TEJA; [facility] Active Problems & Conditions - Chronic Low Back Pain - Chronic Pain Syndrome - Essential Hypertension Benign - Gerd - Hyperlipidemia - Hypothyroidism - Obesity - Persistent Depressive Disorder (Dysthymia) - Persistent Insomnia - Sacroiliitis - 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 - Vitamin D Deficiency Chief Complaint Phone Call - Chief Concern: Reason for call:REFILL Patient is requesting a refill on HYDROCODONE ~How is medication taken? BID ~How many are left?#1.5 Risk Assessment Score: LOW ~[place]PMP:11/20/23 Last Office Visit: 09/16/23 ~ pt phone # for Return call: [phone] ~Last Drug Screen:06/21/23 ~Date/Initials: 12/24/23, KMS. History of Present Illness Pharmacy name:~location:[facility]. Past Medical/Surgical History Reported: No recent change in medical history, LMP: 09/05/2011, Last pap smear date 03/05/2010, Last mammogram date: approx 7 yrs ago, Please list all illnesses/conditions you have been diagnosed with: Hypothyroidismhypertensiondepressionchronic low back pain, and Please list all surgeries: Carpal tunnel bilateral Hysterectomy. Medical: Wearing contact lenses and orthopedic history Left Knee Score mild pain Moderate to severe pain. Tests: A mammogram was performed Had one at age 39 and X-rays May [address] [place] [id number]. : 4, para 2, and aborta 2. Diagnoses: Essential hypertension. Hyperlipidemia Current Medication - Advil Dual Action 125-250 MG Oral Tablet as needed 0 days, 0 refills - amLODIPine Besylate 2.5 MG Oral Tablet One tablet daily, 30 days, 5 refills - DULoxetine HCl 30 MG Oral Capsule Delayed Release Particles TAKE 1 CAPSULE BY MOUTH DAILY, 30 days, 5 refills - HYDROcodone-Acetaminophen 5-325 MG Oral Tablet One tablet twice a day as needed for severe painstart 11/20, 30 days, 0 refills - Levothyroxine Sodium 100 MCG Oral Tablet TAKE 1 TABLET BY MOUTH DAILY, 30 days, 5 refills - Omeprazole 40 MG Oral Capsule Delayed Release TAKE 1 CAPSULE BY MOUTH EVERY MORNING, 90 days, 1 refills Social History Difficulty walking. Social history unchanged. Tobacco use: Tobacco non-user and non-smoker. Alcohol: Consuming 5 or more drinks per day None. Drug Use: Number of times used recreational drug/ prescription drug for nonmedical reason. None. Habits: Poor exercise habits. Marital: . Sexual: Sexually active with 2 partners in the last year. Allergies - No Known Allergies Plan StartCited - Spinal stenosis, lumbar region with neurogenic claudication HYDROcodone-Acetaminophen 5-325 MG tablet One tablet twice a day as needed for severe pain, 30 days, 0 refills EndCited Health Reminders - Assess Need for CT Lung Screen satisfied 12/24/2023. - Assess Tobacco Use satisfied 12/24/2023.
--- OUTSIDE RECORDS SUMMARY | 2024-08-28 04:22 | XMS_ITS | Clinical Summary ---
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 Name Role Phone CONRADO ARBOLEDA MD Primary Care Provider [phone] Reason for Visit and Chief Complaint The Chief Complaint is: Elevated BP recently Problems Includes: Problems addressed during this encounter and other active Problems Current Visit Onset Date Resolved Date Provider Roger piper Status Chronic Pain Syndrome 10/13/2022 SPENCER DUBOIS PA-C Active Last Documented On 3 3:22PM ; [facility] Persistent Depressive Disord er (Dysthymia) 10/13/2022 SPENCER DUBOIS PA-C Active Last Documented On 3 3:22PM ; [facility] Hypothyroidism 02/03/2010 SEAN POLANCORIS PA-C Active Last Documented On 0 2:42PM ; [facility] Note: Unchanged Persistent Insomnia 02/03/2010 SEAN POLANCORIS PA-C Active Last Documented On 0 2:42PM ; [facility] Note: Unchanged Gerd 12/17/2009 DANIEL MCCARTY PLANT OPERATIONS COORDINATOR-C Activ e Last Documented On 1 2:35PM ; [facility] Note: Unchanged Hyperlipidemia 12/17/2009 SEAN Cecil POLANCOABBOTT PA-C Active Last Documented On 0 3:58PM ; [facility] Note: Unchanged Essential Hypertension Benign 12/17/2009 SEAN Cecil POLANCOABBOTT PA-C Active Last Documented On 0 3:58PM ; [facility] Note: Unchanged Obesity 12/17/2009 SEAN ABBOTT PA-C Acti ve Last Documented On 0 3:58PM ; [facility] Note: Unchanged Past Visits Onset Date Resolved Date Provider Condition Status 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 10/13/2022 SPENCER DUBOIS PA-C Active Last Documented On 3 3:22PM ; [facility] Sacroiliitis 10/13/2022 SPENCER Narvaez Active Last Documented On 3 3:22PM ; [facility] Vitamin D Deficiency 06/15/2022 SPENCER MARTINEZ PA-C Active Last Documented On 2 4:52PM ; [facility] Chronic Low Back Pain 10/02/2016 CLEMENT BARDALES PMHNP-BC PLANT OPERATIONS COORDINATOR-BC Active Last Documented On 7 10:22AM ; [facility] Plan of Treatment - Weight loss diet - Last Documented On 10/08/2023 10:10AM ; [facility] - Return to the clinic if condition worsens or new symptoms arise - Last Documented On 10/08/2023 10:10AM ; [facility] - Document weight weekly - Last Documented On 10/08/2023 10:10AM ; [facility] - Follow-up visit in 1-2 weeks with an office visit - Last Documented On 10/08/2023 10:10AM ; [facility] - Follow-up visit as needed with an office visit. - Last Documented On 10/08/2023 10:10AM ; [facility] - Patient to call if problem develops - Last Documented On 10/08/2023 10:10AM ; [facility] Discussed amlodipine and its potential ADRs. Follow up in 1-2 weeks for recheck. - Last Documented On 10/08/2023 10:10AM ; [facility] Instructions to patient Lose weight Last Documented On 9:46AM ; [facility] Assessments Includes: Assessments from this encounter Findings - [I10 - Essential (primary) hypertension] Benign essential hypertension - Last Documented On 10/08/2023 10:10AM ; [facility] - [K21.9 - Gastro-esophageal reflux disease without esophagitis] GERD - Last Documented On 10/08/2023 10:10AM ; [facility] - [E78.5 - Hyperlipidemia, unspecified] Hyperlipidemia - Last Documented On 10/08/2023 10:10AM ; [facility] - [E66.9 - Obesity, unspecified] Obesity - Last Documented On 10/08/2023 10:10AM ; [facility] - [E03.9 - Hypothyroidism, unspecified] Hypothyroidism - Last Documented On 10/08/2023 10:10AM ; [facility] - [F34.1 - Dysthymic disorder] Persistent depressive disorder (dysthymia) - Last Documented On 10/08/2023 10:10AM ; [facility] - [G47.00 - Insomnia, unspecified] Persistent insomnia - Last Documented On 10/08/2023 10:10AM ; [facility] - [G89.4 - Chronic pain syndrome] Chronic pain syndrome - Last Documented On 10/08/2023 10:10AM ; [facility] Instructions Includes: Instructions from this encounter Instructions to patient Lose weight Last Documented On 4 9:46AM ; [facility] Medical Equipment - Implanted Devices Includes: Current Devices No Medical Equipment Recorded Medications Includes: Medications discussed during this encounter and other current Medications New / Renewed during this visit SPENCER DUBOIS PA-C on 10/08/2023 amLODIPine Besylate 2.5 MG Oral Tablet Provider: SPENCER DUBOIS PA-C 30 day supply: 30 tablet, 0 refills Diagnosis: Essential (primary) hypertension One tablet daily Pharmacy: [facility] [address] [address] - Last Documented On 4 4:27PM By SPENCER DUBOIS PA-C ; [facility] Current Medications (continue as prescribed) HYDROcodone-Acetaminophen 5- 325 MG Oral Tablet 12/24/2023 Provider: EDWARD VALLEJO Diagnosis: Spinal stenosis, lumbar region with neurogenic claudication One tablet twice a day as ne eded for severe pain Last Documented On 4 11:32AM By EDWARD VALLEJO ; [facility] Advil Dual Action 125-250 MG Oral Tablet 06/21/2023 Provider: Diagnosis: Last Documented On 06/21/2023 4:08PM By Aruna KINSEY ; [facility] Past Medications on file DULoxetine HCl 30 MG Oral Capsule Delayed Release Particles 11/01/2023 - 04/29/2024 Provider: SPENCER DUBOIS PA-C Diagnosis: Chronic pain syndrome TAKE 1 CAPSULE BY MOUTH DAILY Last Documented On 4 7:52AM By SPENCER DUBOIS PA-C ; [facility] amLODIPine Besylate 2.5 MG Oral Tablet 10/29/2023 - 04/26/2024 Provider: SPENCER DUBOIS PA-C Diagnosis: Essential (prima ry) hypertension One tablet daily Last Documented On 4 4:38PM By SPENCER DUBOIS PA-C ; [facility] Omeprazole 40 MG Oral Capsule Delayed Release 08/19/2023 - 02/15/2024 Provider: SPENCER RICKS PA-C Diagnosis: TAKE 1 CAPSULE BY MOUTH EVERY MORNING Last Documented On 4 7:48AM By SPENCER DUBOIS PA-C ; [facility] Levothyroxine Sodium 100 MCG Oral Tablet 07/20/2023 - 01/16/2024 Provider: SPENCER DUBOIS PA-C Diagnosis: Hypothyroidism, unspecified TAKE 1 TABLET BY MOUTH DAILY Last Documented On 4 9:52AM By SPENCER DUBOIS PA-C ; [facility] hydroCHLOROthiazide 25 MG Oral Tablet 06/25/2023 - 12/22/2023 Provider: SPENCER DUBOIS PA-C Diagnosis: Chest pain, unspecified One tablet daily Last Documented On 3 10:01AM By SPENCER DUBOIS PA-C ; [facility] Metoprolol Succinate ER 100 MG Oral Tablet Extended Release 24 Hour 06/25/2023 - 12/22/2023 Provider: SPENCER DUBOIS PA-C Diagnosis: Chest pain, unspecified One tablet daily Last Documented On 3 10:01AM By SPENCER DUBOIS PA-C ; [facility] FLUoxetine HCl 20 MG Oral Tablet 10/13/2022 - 10/28/2022 Provider: SPENCER DUBOIS PA-C Diagnosis: Dysthymic disord er 1 tab QD x7 days, then 1/2 t ab QD x8 days, then stop - weaning off Last Documented On 3 3:22PM By SPENCER DUBOIS PA-C ; [facility] Amoxicillin-Pot Clavulanate 875-125 MG Oral Tablet 06/15/2022 - 06/25/2022 Provider: SPENCER DUBOIS PA-C Diagnosis: Acute maxillary sinusitis, unspecified One tablet twice a day Last Documented On 2 4:59PM By SPENCER DUBOIS PA-C ; [facility] Ondansetron HCl 4 MG Oral Tablet 12/30/2021 - 01/06/2022 Provider: SPENCER SIMMONS PA-C Diagnosis: Nausea 1 every 6 hours as needed Last Documented On 2 4:40PM By SPENCER DUBOIS PA-C ; [facility] Medications Administered Includes: Administered Medications from this encounter No Administered Medications Recorded Vital Signs Includes: Vital Signs from this encounter Vital Name 10/08/2023 09:51A 10/08/2023 09: 42A Blood Pressure Sitting (mmHg) 152/80 15 8/76 Pulse Rate-Sitting (bpm) 68 Respiration Rate (breaths/min) 24 Temp-Oral (F) 98.6 Height (in) 64.5 Weight (lb) 245 Body Mass Index 41.4 Body Surface Area 2.1 Last Documented: On 10/08/2023 9:49AM ; [facility] On 10/08/2023 9:46AM ; [facility] Results Includes: Results discussed during this encounter [...] pain or discomfort - No palpitations - Dyspnea during exertion - No cough - No vomiting - No abdominal pain - No diarrhea - No constipation - No bowel/bladder changes - Dizziness - occ - No lightheadedness - No skin symptoms BP high since last PM appt. Got new home BP monitor and it seems to be consistently high. 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 Social History Description Last Updated Tobacco non-user 09/16/2023 Last Documented On 4 9:45AM ; [facility] No consumption of alcohol 01/22/2022 Last Documented On 4 9:45AM ; [facility] Not using drugs 01/22/2022 Last Documented On 4 9:45AM ; [facility] Difficulty walking 11/24/2021 Last Documented On 4 9:45AM ; [facility] Non-smoker 11/22/2019 Last Documented On 4 9:45AM ; [facility] No caffeine use 09/10/2011 Last Documented On 4 9:45AM ; [facility] Poor exercise habits 09/10/2011 Last Documented On 4 9:45AM ; [facility] Sexually active 09/10/2011 Last Documented On 4 9:45AM ; [facility] Sexually active with 2 partners in the l ast year 09/10/2011 Last Documented On 4 9:45AM ; [facility] Social history unchanged 09/04/2009 Last Documented On 4 9:45AM ; [facility] 06/04/2009 Last Documented On 4 9:45AM ; [facility] Smoking Status Unknown Procedures and Surgical History Includes: Procedures from this encounter Procedures Code Diagnosis Performing Provider Service L ocation Service Date medication instruction Last Documented On 4 9:45AM ; [facility] continue current medication Last Documented On 4 9:45AM ; [facility] plan of care reviewed and agreed to Last Documented On 4 9:45AM ; [facility] risks, benefits, and limitations discuss ed and understood Last Documented On 4 9:45AM ; [facility] review of medications documented 1160F Last Documented On 4 9:47AM ; [facility] Clinical summary provided to patient Last Documented On 4 9:45AM ; [facility] Medical History Includes: Medical History addressed during this encounter No Medical History Recorded Family History Includes: Family History addressed during this encounter Description Last Updated Maternal history of Arthritis 01/22/2022 Last Documented On 4 9:45AM ; [facility] Maternal history of family history of is chemic heart disease 01/22/2022 Last Documented On 4 9:45AM ; [facility] Paternal history of family history of is chemic heart disease 01/22/2022 Last Documented On 4 9:45AM ; [facility] Paternal history of stroke/paralysis Last Documented On 4 9:45AM ; [facility] Family history unchanged 10/02/2016 Last Documented On 4 9:45AM ; [facility] Maternal history of hypertension 016 Last Documented On 4 9:45AM ; [facility] Maternal history of thyroid disorder 12/2015 Last Documented On 4 9:45AM ; [facility] Paternal history of heart disease 2015 Last Documented On 4 9:45AM ; [facility] Paternal history of hypertension 016 Last Documented On 4 9:45AM ; [facility] Heart disease 06/04/2009 Last Documented On 4 9:45AM ; [facility] Review of Systems Includes: Review of Systems from this encounter Systemic: No fever and no chills. Cardiovascular: No chest pain or discomfort, no palpitations, and the heart rate was not fast. Pulmonary: Dyspnea during exertion. Neurological: Dizziness. Mental Status Includes: Mental Status from this encounter Description Oriented to time, place, and person Persistent depressive disord er (dysthymia) Functional Status Includes: Functional Status from this encounter No Functional Status Recorded Physical Exam Includes: Physical Exam from this encounter Allergies Includes: Active Allergies No Known Allergies Encounters Encounter Provider Location Date Check-In Time Check-Out Time Diagnosis PROBLEM VISIT SPENCER DUBOIS PA-C [facility] 024 9:41AM 10:15AM Essential Hypertension Benign,Obesity, Persistent Depressive Disorder (Dysthymia),Chr onic Pain Syndrome,Gerd,H yperlipidemia,H ypothyroidism,P ersistent Insomnia Insurance Includes: Active Insurance Policies Plan Name Member ID Group # Subscriber Relationship Effect collette Dates 1 - CIG [id number] SAMI BARRAZA Self Clinical Notes Includes: Clinical Notes from this encounter * Progress note Date Encounter Last Documented by 10/08/2023 PROBLEM VISIT Last documented on 10/08/2023; 10:10 AM, SPENCER DUBOIS PA-C; [facility] Active Problems & Conditions - [...] Deficiency Chief Complaint The Chief Complaint is: Elevated BP recently. History of Present Illness SAMI BARRAZA is a 58 year old female. Source of patient information was patient - Allergy list reviewed - Medication list reviewed - No headache - No vision problems - No chest pain or discomfort - No palpitations - Dyspnea during exertion - No cough - No vomiting - No abdominal pain - No diarrhea - No constipation - No bowel/bladder changes - Dizziness - occ - No lightheadedness - No skin symptoms BP high since last PM appt. Got new home BP monitor and it seems to be consistently high. 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 Current Medication - Advil Dual Action 125-250 MG Oral Tablet as needed 0 days, 0 refills - hydroCHLOROthiazide 25 MG [...] and non-smoker. Alcohol: No consumption of alcohol. Drug Use: Not using drugs. Habits: Poor exercise habits. Marital: . Sexual: Sexually active with 2 partners in the last year. Allergies - No Known Allergies Family History Heart disease Family history unchanged Paternal: Stroke/paralysis Ischemic heart disease Systemic hypertension Heart disease Maternal: Arthritis Ischemic heart disease Systemic hypertension Thyroid disorder Review Of Systems Systemic: No fever and no chills. Cardiovascular: No chest pain or discomfort, no palpitations, and the heart rate was not fast. Pulmonary: Dyspnea during exertion. Neurological: Dizziness. Physical Findings - Vitals taken 10/08/2023 09:42 am BP-Sitting 158/76 mmHg Pulse Rate-Sitting 68 bpm Respiration Rate 24 per min Temp-Oral 98.6 F Height 64.5 in Weight 245 lbs Body Mass Index 41.4 kg/m2 Body Surface Area 2.1 m2 - Vitals taken 10/08/2023 09:51 am BP-Sitting 152/80 mmHg General Appearance: - Alert. - Well developed. - Well nourished. - In no acute distress. Eyes: General/bilateral: Extraocular Movements: - Normal. Pupils: - PERRLA. Ears: General/bilateral: External Auditory Canal: - External auditory meatus normal. Hearing Exam: - No hearing loss noted. Nose: General/bilateral: Discharge: - No nasal discharge. Pharynx: Oropharynx: - Normal. Lungs: - Clear to auscultation. Cardiovascular: Heart Rate And Rhythm: - Normal. Heart Sounds: - Normal. Murmurs: - No murmurs were heard. Abdomen: Palpation: - Abdomen was soft. Neurological: - Oriented to time, place, and person. Gait And Stance: - Normal. Skin: - General appearance was normal. - Color and pigmentation were normal. - Moisture was normal. - Temperature was normal. Assessment - [I10 - Essential (primary) hypertension] Benign essential hypertension - [K21.9 - Gastro-esophageal reflux disease without esophagitis] GERD - [E78.5 - Hyperlipidemia, unspecified] Hyperlipidemia - [E66.9 - Obesity, unspecified] Obesity - [E03.9 - Hypothyroidism, unspecified] Hypothyroidism - [F34.1 - Dysthymic disorder] Persistent depressive disorder (dysthymia) - [G47.00 - Insomnia, unspecified] Persistent insomnia - [G89.4 - Chronic pain syndrome] Chronic pain syndrome Therapy - Risks, benefits, and limitations discussed and understood. - Medication instruction. - Continue current medication. - Clinical summary provided to patient. - Plan of care reviewed and agreed to. Counseling/Education - Lose weight Plan StartCited - Essential (primary) hypertension amLODIPine Besylate 2.5 MG tablet One tablet daily, 30 days, 0 refills EndCited - Weight loss diet - Return to the clinic if condition worsens or new symptoms arise - Document weight weekly - Follow-up visit in 1-2 weeks with an office visit - Follow-up visit as needed with an office visit. - Patient to call if problem develops Discussed amlodipine and its potential ADRs. Follow up in 1-2 weeks for recheck. Practice Management Review of medications documented. Health Reminders - Assess Blood Pressure satisfied 10/08/2023. - Assess BMI satisfied 10/08/2023. - Assess Need for CT Lung Screen satisfied 09/16/2023. - Assess Tobacco Use satisfied 09/16/2023. - Follow Up Plan BMI Management satisfied 10/08/2023.
--- OUTSIDE RECORDS SUMMARY | 2024-08-28 04:22 | XMS_ITS | Clinical Summary ---
Author Organization [facility] Address [address] [place] [address] Phone Care Team Providers Care Hardware Press Operator Name Role Phone CONRADO ARBOLEDA MD Primary Care Provider [phone] Reason for Visit and Chief Complaint RX ISSUE/REFILL Problems Includes: Problems addressed during this encounter and other active Problems All Visits Onset Date Resolved Date Provider Condition S tatus Chronic Pain Syndrome 10/13/2022 SPENCER DUBOIS PA-C Active Last Documented On 3 3:22PM ; [facility] Persistent Depressive Disord er (Dysthymia) 10/13/2022 SPENCER SIMEON-Solange Active Last Documented On 3 3:22PM ; [facility] 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 10/13/2022 SPENCER SIMEON-C Active Last Documented On 3 3:22PM ; [facility] Sacroiliitis 10/13/2022 SPENCER SIMEON- C Active Last Documented On 3 3:22PM ; [facility] Vitamin D Deficiency 06/15/2022 SPENCER SIMEON-Solange Active Last Documented On 2 4:52PM ; [facility] Chronic Low Back Pain 10/02/2016 CLEMENT BARDALES PMHNP-BC CLIENT DIRECTOR-BC Active Last Documented On 7 10:22AM ; [facility] Hypothyroidism 02/03/2010 SEAN ABBOTT PA-C Active Last Documented On 0 2:42PM ; [facility] Note: Unchanged Persistent Insomnia 02/03/2010 SEAN ABBOTT PA-C Active Last Documented On 0 2:42PM ; [facility] Note: Unchanged Gerd 12/17/2009 DANIEL MCCARTY CLIENT DIRECTOR-C Activ e Last Documented On 1 2:35PM ; [facility] Note: Unchanged Hyperlipidemia 12/17/2009 SEAN ABBOTT PA-C Active Last Documented On 0 3:58PM ; [facility] Note: Unchanged Essential Hypertension Benign 12/17/2009 SEAN ABBOTT PA-C Active Last Documented On 0 3:58PM ; [facility] Note: Unchanged Obesity 12/17/2009 SEAN ABBOTT PA-C Acti ve Last Documented On 0 3:58PM ; [facility] Note: Unchanged Plan of Treatment No Plan of Treatment Recorded Assessments Includes: Assessments from this encounter No Assessments Recorded Medical Equipment - Implanted Devices Includes: Current Devices No Medical Equipment Recorded Medications Includes: Medications discussed during this encounter and other current Medications Discontinued / Stopped on this date EDWARD VALLEJO on 09/16/2023 HYDROcodone-Acetaminophen 5- 325 MG Oral Tablet Provider: EDWARD VALLEJO Diagnosis: Spinal stenosis, lumbar region with neurogenic claudication Last Documented On 4 3:00PM By EDWARD VALLEJO ; [facility] New / Renewed during this visit EDWARD VALLEJO on 10/19/2023 HYDROcodone-Acetaminophen 5- 325 MG Oral Tablet Provider: EDWARD VALLEJO 30 day supply: 60 tablet, 0 refills Diagnosis: Spinal stenosis, lumbar region with neurogenic claudication One tablet twice a day as ne eded for severe pain Pharmacy: [facility] [address], [address] - Last Documented On 4 2:09PM By EDWARD VALLEJO ; [facility] Current Medications (continue as prescribed) HYDROcodone-Acetaminophen 5- 325 MG Oral Tablet 12/24/2023 Provider: EDWARD VALLEJO Diagnosis: Spinal stenosis, lumbar region with neurogenic claudication One tablet twice a day as ne eded for severe pain Last Documented On 4 11:32AM [facility] Advil Dual Action 125-250 MG Oral Tablet 06/21/2023 Provider: Diagnosis: Last Documented On 06/21/2023 4:08PM By Aruna KINSEY ; [facility] Past Medications on file DULoxetine HCl 30 MG Oral Capsule Delayed Release Particles 11/01/2023 - 04/29/2024 Provider: SPENCER DUBOIS PA-C Diagnosis: Chronic pain syndrome TAKE 1 CAPSULE BY MOUTH DAILY Last Documented On 4 7:52AM By SPENCER DUBOIS PA-C ; [facility] amLODIPine Besylate 2.5 MG Oral Tablet 10/29/2023 - 04/26/2024 Provider: SPENCER DUBOIS PA-C Diagnosis: Essential (prima ry) hypertension One tablet daily Last Documented On 4 4:38PM By SPENCER DUBOIS PA-C ; [facility] Omeprazole 40 MG Oral Capsule Delayed Release 08/19/2023 - 02/15/2024 Provider: SPENCER RICKS PA-C Diagnosis: TAKE 1 CAPSULE BY MOUTH EVERY MORNING Last Documented On 4 7:48AM By SPENCER DUBOIS PA-C ; [facility] Levothyroxine Sodium 100 MCG Oral Tablet 07/20/2023 - 01/16/2024 Provider: SPENCER DUBOIS PA-C Diagnosis: Hypothyroidism, unspecified TAKE 1 TABLET BY MOUTH DAILY Last Documented On 4 9:52AM By SPENCER DUBOIS PA-C ; [facility] hydroCHLOROthiazide 25 MG Oral Tablet 06/25/2023 - 12/22/2023 Provider: SPENCER DUBOIS PA-C Diagnosis: Chest pain, unspecified One tablet daily Last Documented On 3 10:01AM By SPENCER DUBOIS PA-C ; [facility] Metoprolol Succinate ER 100 MG Oral Tablet Extended Release 24 Hour 06/25/2023 - 12/22/2023 Provider: SPENCER DUBOIS PA-C Diagnosis: Chest pain, unspecified One tablet daily Last Documented On 3 10:01AM By SPENCER DUBOIS PA-C ; [facility] FLUoxetine HCl 20 MG Oral Tablet 10/13/2022 - 10/28/2022 Provider: SPENCER DUBOIS PA-C Diagnosis: Dysthymic disord er 1 tab QD x7 days, then 1/2 t ab QD x8 days, then stop - weaning off Last Documented On 3 3:22PM By SPENCER DUBOIS PA-C ; [facility] Amoxicillin-Pot Clavulanate 875-125 MG Oral Tablet 06/15/2022 - 06/25/2022 Provider: SPENCER DUBOIS PA-C Diagnosis: Acute maxillary sinusitis, unspecified One tablet twice a day Last Documented On 2 4:59PM By SPENCER DUBOIS PA-C ; [facility] Ondansetron HCl 4 MG Oral Tablet 12/30/2021 - 01/06/2022 Provider: SPENCER SIMMONS PA-C Diagnosis: Nausea 1 every 6 hours as needed Last Documented On 2 4:40PM By SPENCER DUBOIS PA-C ; [facility] Medications Administered Includes: Administered Medications from this encounter No Administered Medications Recorded Results Includes: Results discussed during this encounter No Results Recorded For Specified Dates History of Present Illness Includes: History of Present Illness from this encounter No History of Present Illness Recorded Social History Description Last Updated Tobacco non-user 09/16/2023 Last Documented On 4 1:17PM ; [facility] Difficulty walking 11/24/2021 Last Documented On 4 1:17PM ; [facility] Non-smoker 11/22/2019 Last Documented On 4 1:17PM ; [facility] Poor exercise habits 09/10/2011 Last Documented On 4 1:17PM ; [facility] Sexually active 09/10/2011 Last Documented On 4 1:17PM ; [facility] Sexually active with 2 partners in the l ast year 09/10/2011 Last Documented On 4 1:17PM ; [facility] Social history unchanged 09/04/2009 Last Documented On 4 1:17PM ; [facility] 06/04/2009 Last Documented On 4 1:17PM ; [facility] Smoking Status Unknown Medical History Includes: Medical History addressed during this encounter Description Last Updated Moderate to severe pain 01/22/2022 Last Documented On 4 1:17PM ; [facility] Please list all illnesses/co nditions you have been diagnosed with: Hypothyroidismhypertensiondepressionchronic low back pain 01/22/2022 Last Documented On 4 1:17PM ; [facility] Please list all surgeries: Carpal tunnel bilateral Hysterectomy 01/22/2022 Last Documented On 4 1:17PM ; [facility] Wearing contact lenses 01/22/2022 Last Documented On 4 1:17PM ; [facility] 01/22/2022 Last Documented On 4 1:17PM ; [facility] No recent change in medical history 09/10 Last Documented On 4 1:17PM ; [facility] Aborta 2 09/10/2011 Last Documented On 4 1:17PM ; [facility] Last mammogram date: approx 7 yrs ago Last Documented On 4 1:17PM ; [facility] 4 09/10/2011 Last Documented On 4 1:17PM ; [facility] Last pap smear date 03/05/2010 09/10/2011 Last Documented On 4 1:17PM ; [facility] LMP: 09/05/2011 09/10/2011 Last Documented On 4 1:17PM ; [facility] Para 2 09/10/2011 Last Documented On 4 1:17PM ; [facility] A mammogram was performed Had one at age 39 09/24/2010 Last Documented On 4 1:17PM ; [facility] History of essential hypertension 2009 Last Documented On 4 1:17PM ; [facility] History of hyperlipidemia 02/03/2010 Last Documented On 4 1:17PM ; [facility] Family History Includes: Family History addressed during [...] Time Check-Out Time Diagnosis RX ISSUE/REFILL EDWARD MOSQUERA-TEJA 10/19/2023 1:17PM 11:59PM Insurance Includes: Active Insurance Policies Plan Name Member ID Group # Subscriber Relationship Effect collette Dates - [id number] SAMI BARRAZA Self Clinical Notes Includes: Clinical Notes from this encounter * Progress note Date Encounter Last Documented by 10/19/2023 RX ISSUE/REFILL Last documented on 10/19/2023; 3:00 PM, EDWARD MOSQUERA-TEJA; [facility] Active Problems & Conditions - Chronic Low Back Pain - Chronic Pain Syndrome - Essential Hypertension Benign - Gerd - Hyperlipidemia - Hypothyroidism - Obesity - Persistent Depressive Disorder (Dysthymia) - Persistent Insomnia - Sacroiliitis - 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 - Vitamin D Deficiency Chief Complaint Phone Call - Chief Concern: Reason for call:RX REFILL Patient is requesting a refill on HYDROCODONE 5/325 ~How is medication taken? BID ~How many are left?2 Risk Assessment Score: LOW ~[place]:09/16/23 Last Office Visit: 09/16/23 ~ pt phone # for Return call: ~Last Drug Screen:06/21/23 ~Date/Initials: 10/19/23 CB. Past Medical/Surgical History Reported: No recent change [...] Had one at age 39 and [facility]. : 4, para 2, and aborta 2. Diagnoses: Essential hypertension. Hyperlipidemia Current Medication - Advil Dual Action 125-250 MG Oral Tablet as needed 0 days, 0 refills - amLODIPine Besylate 2.5 MG Oral Tablet One tablet daily, 30 days, 0 refills - hydroCHLOROthiazide 25 MG Oral Tablet One tablet daily, 90 days, 1 refills - Levothyroxine Sodium 100 MCG Oral [...] unchanged. Tobacco use: Tobacco non-user and non-smoker. Habits: Poor exercise habits. Marital: . Sexual: Sexually active with 2 partners in the last year. Allergies - No Known Allergies Plan StartCited - Spinal stenosis, lumbar region with neurogenic claudication HYDROcodone-Acetaminophen 5-325 MG tablet One tablet twice a day as needed for severe pain, 30 days, 0 refills EndCited Health Reminders - Assess Need for CT Lung Screen satisfied 10/19/2023. - Assess Tobacco Use satisfied 10/19/2023.
--- OUTSIDE RECORDS SUMMARY | 2024-08-28 04:22 | XMS_ITS | Clinical Summary ---
Author Organization [facility] Address [address] [place] [address] Phone Care Team Providers Care Vp Director Of Finance Name Role Phone CONRADO ARBOLEDA MD Primary Care Provider [phone] Reason for Visit and Chief Complaint RX ISSUE/REFILL Problems Includes: Problems addressed during this encounter and other active Problems All Visits Onset Date Resolved Date Provider Condition S tatus Chronic Pain Syndrome 10/13/2022 SPENCER DUBOIS PA-C Active Last Documented On 3 3:22PM ; [facility] Persistent Depressive Disord er (Dysthymia) 10/13/2022 SPENCER SIMEON-Solange Active Last Documented On 3 3:22PM ; [facility] 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 10/13/2022 SPENCER SIMEON-C Active Last Documented On 3 3:22PM ; [facility] Sacroiliitis 10/13/2022 SPENCER SIMEON- C Active Last Documented On 3 3:22PM ; [facility] Vitamin D Deficiency 06/15/2022 SPENCER SIMEON-Solange Active Last Documented On 2 4:52PM ; [facility] Chronic Low Back Pain 10/02/2016 CLEMENT BARDALES PMHNP-BC TESTING SPECIALIST-BC Active Last Documented On 7 10:22AM ; [facility] Hypothyroidism 02/03/2010 SEAN ABBOTT PA-C Active Last Documented On 0 2:42PM ; [facility] Note: Unchanged Persistent Insomnia 02/03/2010 SEAN ABBOTT PA-C Active Last Documented On 0 2:42PM ; [facility] Note: Unchanged Gerd 12/17/2009 DANIEL MCCARTY TESTING SPECIALIST-C Activ e Last Documented On 1 2:35PM ; [facility] Note: Unchanged Hyperlipidemia 12/17/2009 SEAN ABBOTT PA-C Active Last Documented On 0 3:58PM ; [facility] Note: Unchanged Essential Hypertension Benign 12/17/2009 SEAN ABBOTT PA-C Active Last Documented On 0 3:58PM ; [facility] Note: Unchanged Obesity 12/17/2009 SEAN SIMEON-C Acti ve Last Documented On 0 3:58PM ; [facility] Note: Unchanged Plan of Treatment No Plan of Treatment Recorded Assessments Includes: Assessments from this encounter No Assessments Recorded Medical Equipment - Implanted Devices Includes: Current Devices No Medical Equipment Recorded Medications Includes: Medications discussed during this encounter and other current Medications Discontinued / Stopped on this date EDWARD VALLEJO on 10/19/2023 HYDROcodone-Acetaminophen 5- 325 MG Oral Tablet Provider: EDWARD VALLEJO Diagnosis: Spinal stenosis, lumbar region with neurogenic claudication Last Documented On 4 2:09PM By EDWARD VALLEJO ; [facility] Current Medications (continue as prescribed) HYDROcodone-Acetaminophen 5- 325 MG Oral Tablet 12/24/2023 Provider: EDWARD VALLEJO Diagnosis: Spinal stenosis, lumbar region with neurogenic claudication One tablet twice a day as ne eded for severe pain Last Documented On 4 11:32AM By EDWARD VALLEJO ; [facility] Advil Dual Action 125-250 MG Oral Tablet 06/21/2023 Provider: Diagnosis: Last Documented On 06/21/2023 4:08PM By Aruna KINSEY ; [facility] Past Medications on file DULoxetine HCl 30 MG Oral Capsule Delayed Release Particles 11/01/2023 - 04/29/2024 Provider: SPENCER DUBOIS PA-C Diagnosis: Chronic pain syndrome TAKE 1 CAPSULE BY MOUTH DAILY Last Documented On 4 7:52AM By SPENCER DUBOIS PA-C ; [facility] amLODIPine Besylate 2.5 MG Oral Tablet 10/29/2023 - 04/26/2024 Provider: SPENCER DUBOIS PA-C Diagnosis: Essential (prima ry) hypertension One tablet daily Last Documented On 4 4:38PM By SPENCER DUBOIS PA-C ; [facility] Omeprazole 40 MG Oral Capsule Delayed Release 08/19/2023 - 02/15/2024 Provider: SPENCER RICKS PA-C Diagnosis: TAKE 1 CAPSULE BY MOUTH EVERY MORNING Last Documented On 4 7:48AM By SPENCER DUBOIS PA-C ; [facility] Levothyroxine Sodium 100 MCG Oral Tablet 07/20/2023 - 01/16/2024 Provider: SPENCER DUBOIS PA-C Diagnosis: Hypothyroidism, unspecified TAKE 1 TABLET BY MOUTH DAILY Last Documented On 4 9:52AM By SPENCER DUBOIS PA-C ; [facility] hydroCHLOROthiazide 25 MG Oral Tablet 06/25/2023 - 12/22/2023 Provider: SPENCER DUBOIS PA-C Diagnosis: Chest pain, unspecified One tablet daily Last Documented On 3 10:01AM By SPENCER DUBOIS PA-C ; [facility] Metoprolol Succinate ER 100 MG Oral Tablet Extended Release 24 Hour 06/25/2023 - 12/22/2023 Provider: SPENCER DUBOIS PA-C Diagnosis: Chest pain, unspecified One tablet daily Last Documented On 3 10:01AM By SPENCER DUBOIS PA-C ; [facility] FLUoxetine HCl 20 MG Oral Tablet 10/13/2022 - 10/28/2022 Provider: SPENCER DUBOIS PA-C Diagnosis: Dysthymic disord er 1 tab QD x7 days, then 1/2 t ab QD x8 days, then stop - weaning off Last Documented On 3 3:22PM By SPENCER DUBOIS PA-C ; [facility] Amoxicillin-Pot Clavulanate 875-125 MG Oral Tablet 06/15/2022 - 06/25/2022 Provider: SPENCER DUBOIS PA-C Diagnosis: Acute maxillary sinusitis, unspecified One tablet twice a day Last Documented On 2 4:59PM By SPENCER DUBOIS PA-C ; [facility] Ondansetron HCl 4 MG Oral Tablet 12/30/2021 - 01/06/2022 Provider: SPENCER SIMMONS PA-C Diagnosis: Nausea 1 every 6 hours as needed Last Documented On 2 4:40PM By SPENCER DUBOIS PA-C ; [facility] Medications Administered Includes: Administered Medications from this encounter No Administered Medications Recorded Results Includes: Results discussed during this encounter No Results Recorded For Specified Dates History of Present Illness Includes: History of Present Illness from this encounter HPI Pharmacy name:~location:[facility]. Social History Description Last Updated Consuming 5 or more drinks per day None 10/29/2023 Last Documented On 4 11:52AM ; [facility] Number of times used recreat ional drug/ prescription drug for nonmedical reason. None 10/29/2023 Last Documented On 4 11:52AM ; [facility] Tobacco non-user 09/16/2023 Last Documented On 4 11:52AM ; [facility] Difficulty walking 11/24/2021 Last Documented On 4 11:52AM ; [facility] Non-smoker 11/22/2019 Last Documented On 4 11:52AM ; [facility] Poor exercise habits 09/10/2011 Last Documented On 4 11:52AM ; [facility] Sexually active 09/10/2011 Last Documented On 4 11:52AM ; [facility] Sexually active with 2 partners in the l ast year 09/10/2011 Last Documented On 4 11:52AM ; [facility] Social history unchanged 09/04/2009 Last Documented On 4 11:52AM ; [facility] 06/04/2009 Last Documented On 4 11:52AM ; [facility] Smoking Status Unknown Medical History Includes: Medical History addressed during this encounter Description Last Updated Moderate to severe pain 01/22/2022 Last Documented On 4 11:52AM ; [facility] Please list all illnesses/co nditions you have been diagnosed with: Hypothyroidismhypertensiondepressionchronic low back pain 01/22/2022 Last Documented On 4 11:52AM ; [facility] Please list all surgeries: Carpal tunnel bilateral Hysterectomy 01/22/2022 Last Documented On 4 11:52AM ; [facility] Wearing contact lenses 01/22/2022 Last Documented On 4 11:52AM ; [facility] 01/22/2022 Last Documented On 4 11:52AM ; [facility] No recent change in medical history 09/10 Last Documented On 4 11:52AM ; [facility] Aborta 2 09/10/2011 Last Documented On 4 11:52AM ; [facility] Last mammogram date: approx 7 yrs ago Last Documented On 4 11:52AM ; [facility] 4 09/10/2011 Last Documented On 4 11:52AM ; [facility] Last pap smear date 03/05/2010 09/10/2011 Last Documented On 4 11:52AM ; [facility] LMP: 09/05/2011 09/10/2011 Last Documented On 4 11:52AM ; [facility] Para 2 09/10/2011 Last Documented On 4 11:52AM ; [facility] A mammogram was performed Had one at age 39 09/24/2010 Last Documented On 4 11:52AM ; [facility] History of essential hypertension 2009 Last Documented On 4 11:52AM ; [facility] History of hyperlipidemia 02/03/2010 Last Documented On 4 11:52AM ; [facility] Family History Includes: Family History addressed during [...] Check-Out Time Diagnosis RX ISSUE/REFILL EDWARD MOSQUERA-TEJA 11/17/2023 11:53AM 11:59PM Insurance Includes: Active Insurance Policies Plan Name Member ID Group # Subscriber Relationship Effect collette Dates - [id number] SAMI BARRAZA Self Clinical Notes Includes: Clinical Notes from this encounter * Progress note Date Encounter Last Documented by 11/17/2023 RX ISSUE/REFILL Last documented on 11/18/2023; 2:09 PM, EDWARD MOSQUERA-TEJA; [facility] Active Problems & Conditions [...] is medication taken? BID ~How many are left?#7 Risk Assessment Score: LOW ~[place]:10/19/23 Last Office Visit: 09/16/23 ~ pt phone # for Return call: [phone] ~Last Drug Screen:06/21/24 ~Date/Initials:11/17/23, KMS. History of Present Illness Pharmacy name:~location:[facility]. Past Medical/Surgical History Reported: No recent change [...] one at age 39 and [facility] November [facility]. : 4, para 2, and aborta 2. Diagnoses: Essential hypertension. Hyperlipidemia Current Medication - Advil Dual Action 125-250 MG Oral Tablet as needed 0 days, 0 refills - amLODIPine Besylate 2.5 MG Oral Tablet One tablet daily, 30 days, 5 refills - DULoxetine HCl 30 MG Oral Capsule Delayed Release Particles TAKE 1 CAPSULE BY MOUTH DAILY, 30 days, 5 refills - hydroCHLOROthiazide 25 MG Oral Tablet [...] severe painstart 11/20, 30 days, 0 refills EndCited Health Reminders - Assess Need for CT Lung Screen satisfied 11/17/2023. - Assess Tobacco Use satisfied 11/17/2023.
--- OUTSIDE RECORDS SUMMARY | 2024-08-28 04:22 | XMS_ITS ---
Care Plan - [facility] Created on: August 28, 2024 SAMI BARRAZA : 1965 Sex: Female Author Organization [facility] Address [address] [place] [address] Phone Care Team Providers Care Subway Operator Name Role Phone OCNRADO ARBOLEDA MD Primary Care Provider [phone]
--- NOTE | 2024-08-28 04:30 | PC.NURSE ---
ERP aware of pt's vital signs. No new orders.
--- OUTSIDE RECORDS SUMMARY | 2024-08-28 04:36 | XMS_ITS ---
Care Plan - [facility] Created on: August 28, 2024 SAMI BARRAZA : 1965 Sex: Female Author Organization [facility] Address [address] [place] [address] Phone Care Team Providers Care Personal Banking Assistant Name Role Phone CONRADO ARBOLEDA MD Primary Care Provider [phone]
--- OUTSIDE RECORDS SUMMARY | 2024-08-28 04:36 | XMS_ITS | Clinical Summary ---
Author Organization [facility] Address [address] [place] [address] Phone Care Team Providers Care Stevedoring Superintendent Name Role Phone CONRADO ARBOLEDA MD Primary Care Provider [phone] Reason for Visit and Chief Complaint RX ISSUE/REFILL Problems Includes: Problems addressed during this encounter and other active Problems All Visits Onset Date Resolved Date Provider Condition S tatus Chronic Pain Syndrome 10/13/2022 SPENCER DUBOIS PA-C Active Last Documented On 3 3:22PM ; [facility] Persistent Depressive Disord er (Dysthymia) 10/13/2022 SPENCER SIMEON-Solange Active Last Documented On 3 3:22PM ; [facility] 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 10/13/2022 SPENCER SIMEON-C Active Last Documented On 3 3:22PM ; [facility] Sacroiliitis 10/13/2022 SPENCER SIMEON- C Active Last Documented On 3 3:22PM ; [facility] Vitamin D Deficiency 06/15/2022 SPENCER SIMEON-Solange Active Last Documented On 2 4:52PM ; [facility] Chronic Low Back Pain 10/02/2016 CLEMENT BARDALES PMHNP-BC [employer]AR[employer]ENT-BC Active Last Documented On 7 10:22AM ; [facility] Hypothyroidism 02/03/2010 SEAN ABBOTT PA-C Active Last Documented On 0 2:42PM ; [facility] Note: Unchanged Persistent Insomnia 02/03/2010 SEAN ABBOTT PA-C Active Last Documented On 0 2:42PM ; [facility] Note: Unchanged Gerd 12/17/2009 DANIEL MCCARTY [employer]-C Activ e Last Documented On 1 2:35PM ; [facility] Note: Unchanged Hyperlipidemia 12/17/2009 SEAN ABBOTT PA-C Active Last Documented On 0 3:58PM ; [facility] Note: Unchanged Essential Hypertension Benign 12/17/2009 SEAN ABBOTT PA-C Active Last Documented On 0 3:58PM ; [facility] Note: Unchanged Obesity 12/17/2009 SEAN SIMEON-C Acti ve Last Documented On 0 3:58PM ; [facility] Note: Unchanged Plan of [...] as ne eded for severe pain Pharmacy: [address], [id number] - Last Documented On 4 11:32AM By EDWARD VALLEJO ; [facility] Current Medications (continue as prescribed) Advil Dual Action 125-250 MG Oral Tablet 06/21/2023 Provider: Diagnosis: Last Documented On 06/21/2023 4:08PM By Aruna KINSEY ; [facility] Past Medications on file DULoxetine HCl 30 MG Oral Capsule Delayed Release Particles 11/01/2023 - 04/29/2024 Provider: SPENCER DUBOIS PA-C Diagnosis: Chronic pain syndrome TAKE 1 CAPSULE BY MOUTH DAILY Last Documented On 4 7:52AM By SPENCER DUBOIS PA-C ; [facility] amLODIPine Besylate 2.5 MG Oral Tablet 10/29/2023 - 04/26/2024 Provider: SPENCER DUBOIS PA-C Diagnosis: Essential (prima ry) hypertension One tablet daily Last Documented On 4 4:38PM By SPENCER DUBOIS PA-C ; [facility] Omeprazole 40 MG Oral Capsule Delayed Release 08/19/2023 - 02/15/2024 Provider: SPENCER RICKS PA-C Diagnosis: TAKE 1 CAPSULE BY MOUTH EVERY MORNING Last Documented On 4 7:48AM By SPENCER DUBOIS PA-C ; [facility] Levothyroxine Sodium 100 MCG Oral Tablet 07/20/2023 - 01/16/2024 Provider: SPENCER DUBOIS PA-C Diagnosis: Hypothyroidism, unspecified TAKE 1 TABLET BY MOUTH DAILY Last Documented On 4 9:52AM By SPENCER DUBOIS PA-C ; [facility] hydroCHLOROthiazide 25 MG Oral Tablet 06/25/2023 - 12/22/2023 Provider: SPENCER DUBOIS PA-C Diagnosis: Chest pain, unspecified One tablet daily Last Documented On 3 10:01AM By SPENCER DUBOIS PA-C ; [facility] Metoprolol Succinate ER 100 MG Oral Tablet Extended Release 24 Hour 06/25/2023 - 12/22/2023 Provider: SPENCER DUBOIS PA-C Diagnosis: Chest pain, unspecified One tablet daily Last Documented On 3 10:01AM By SPENCER DUBOIS PA-C ; [facility] FLUoxetine HCl 20 MG Oral Tablet 10/13/2022 - 10/28/2022 Provider: SPENCER DUBOIS PA-C Diagnosis: Dysthymic disord er 1 tab QD x7 days, then 1/2 t ab QD x8 days, then stop - weaning off Last Documented On 3 3:22PM By SPENCER DUBOIS PA-C ; [facility] Amoxicillin-Pot Clavulanate 875-125 MG Oral Tablet 06/15/2022 - 06/25/2022 Provider: SPENCER DUBOIS PA-C Diagnosis: Acute maxillary sinusitis, unspecified One tablet twice a day Last Documented On 2 4:59PM By SPENCER DUBOIS PA-C ; [facility] Ondansetron HCl 4 MG Oral Tablet 12/30/2021 - 01/06/2022 Provider: SPENCER SIMMONS PA-C Diagnosis: Nausea 1 every 6 hours as needed Last Documented On 2 4:40PM By SPENCER DUBOIS PA-C ; [facility] Medications Administered Includes: Administered Medications from this encounter No Administered Medications Recorded Results Includes: Results discussed during this encounter No Results Recorded For Specified Dates History of Present Illness Includes: History of Present Illness from this encounter HPI Pharmacy name:~location:[facility]. Social History Description Last Updated Consuming 5 or more drinks per day None 10/29/2023 Last Documented On 4 11:06AM ; [facility] Number of times used recreat ional drug/ prescription drug for nonmedical reason. None 10/29/2023 Last Documented On 4 11:06AM ; [facility] Tobacco non-user 09/16/2023 Last Documented On 4 11:06AM ; [facility] Difficulty walking 11/24/2021 Last Documented On 4 11:06AM ; [facility] Non-smoker 11/22/2019 Last Documented On 4 11:06AM ; [facility] Poor exercise habits 09/10/2011 Last Documented On 4 11:06AM ; [facility] Sexually active 09/10/2011 Last Documented On 4 11:06AM ; [facility] Sexually active with 2 partners in the l ast year 09/10/2011 Last Documented On 4 11:06AM ; [facility] Social history unchanged 09/04/2009 Last Documented On 4 11:06AM ; [facility] 06/04/2009 Last Documented On 4 11:06AM ; [facility] Smoking Status Unknown Medical History Includes: Medical History addressed during this encounter Description Last Updated Moderate to severe pain 01/22/2022 Last Documented On 4 11:06AM ; [facility] Please list all illnesses/co nditions you have been diagnosed with: Hypothyroidismhypertensiondepressionchronic low back pain 01/22/2022 Last Documented On 4 11:06AM ; [facility] Please list all surgeries: Carpal tunnel bilateral Hysterectomy 01/22/2022 Last Documented On 4 11:06AM ; [facility] Wearing contact lenses 01/22/2022 Last Documented On 4 11:06AM ; [facility] X-rays November 20low [facility] 01/22/2022 Last Documented On 4 11:06AM ; [facility] No recent change in medical history 09/10 Last Documented On 4 11:06AM ; [facility] Aborta 2 09/10/2011 Last Documented On 4 11:06AM ; [facility] Last mammogram date: approx 7 yrs ago Last Documented On 4 11:06AM ; [facility] 4 09/10/2011 Last Documented On 4 11:06AM ; [facility] Last pap smear date 03/05/2010 09/10/2011 Last Documented On 4 11:06AM ; [facility] LMP: 09/05/2011 09/10/2011 Last Documented On 4 11:06AM ; [facility] Para 2 09/10/2011 Last Documented On 4 11:06AM ; [facility] A mammogram was performed Had one at age 39 09/24/2010 Last Documented On 4 11:06AM ; [facility] History of essential hypertension 2009 Last Documented On 4 11:06AM ; [facility] History of hyperlipidemia 02/03/2010 Last Documented On 4 11:06AM ; [facility] Family History Includes: Family History addressed [...] # Subscriber Relationship Effect collette Dates - [phone] SAMI BARRAZA Self Clinical Notes Includes: Clinical Notes from this encounter * Progress note Date Encounter Last Documented by 12/24/2023 RX ISSUE/REFILL Last documented on 12/24/2023; 11:29 AM, EDWARD MOSQUERA-TEJA; [facility] Active Problems & Conditions [...] ~ pt phone # for Return call: [phone] ~Last Drug Screen:06/21/23 ~Date/Initials: 12/24/23, KMS. History of Present Illness Pharmacy name:~location:[facility]. Past Medical/Surgical History Reported: No recent change [...] one at age 39 and X-rays May [address] [place] [address]. : 4, para 2, and aborta 2. [...]
--- OUTSIDE RECORDS SUMMARY | 2024-08-28 04:36 | XMS_ITS | Clinical Summary ---
Author Organization [facility] Address [address] [place] [address] Phone Care Team Providers Care Record Center Specialist Name Role Phone CONRADO ARBOLEDA MD Primary Care Provider [phone] Reason for Visit and Chief Complaint RX ISSUE/REFILL Problems Includes: Problems addressed during this encounter and other active Problems All Visits Onset Date Resolved Date Provider Condition S tatus Chronic Pain Syndrome 10/13/2022 SPENCER DUBOIS PA-C Active Last Documented On 3 3:22PM ; [facility] Persistent Depressive Disord er (Dysthymia) 10/13/2022 SPENCER SIMEON-Solange Active Last Documented On 3 3:22PM ; [facility] 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 10/13/2022 SPENCER SIMEON-C Active Last Documented On 3 3:22PM ; [facility] Sacroiliitis 10/13/2022 SPENCER SIMEON- C Active Last Documented On 3 3:22PM ; [facility] Vitamin D Deficiency 06/15/2022 SPENCER SIMEON-Solange Active Last Documented On 2 4:52PM ; [facility] Chronic Low Back Pain 10/02/2016 CLEMENT BARDALES 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 Active Last Documented On 7 10:22AM ; [facility] Hypothyroidism 02/03/2010 SEAN ABBOTT PA-C Active Last Documented On 0 2:42PM ; [facility] Note: Unchanged Persistent Insomnia 02/03/2010 SEAN ABBOTT PA-C Active Last Documented On 0 2:42PM ; [facility] Note: Unchanged Gerd 12/17/2009 DANIEL MCCARTY GRADUATE NURSE-C Activ e Last Documented On 1 2:35PM ; [facility] Note: Unchanged Hyperlipidemia 12/17/2009 SEAN ABBOTT PA-C Active Last Documented On 0 3:58PM ; [facility] Note: Unchanged Essential Hypertension Benign 12/17/2009 SEAN ABBOTT PA-C Active Last Documented On 0 3:58PM ; [facility] Note: Unchanged Obesity 12/17/2009 SEAN ABBOTT PA-C Acti ve Last Documented On 0 3:58PM ; [facility] Note: Unchanged Plan of [...] On 4 3:00PM By EDWARD VALLEJO ; [facility] New / Renewed during this visit EDWARD VALLEJO on 10/19/2023 HYDROcodone-Acetaminophen 5- 325 MG Oral Tablet Provider: EDWARD VALLEJO 30 day supply: 60 tablet, 0 refills Diagnosis: Spinal stenosis, lumbar region with neurogenic claudication One tablet twice a day as ne eded for severe pain Pharmacy: [facility] [address], [address] - Last Documented On 4 2:09PM By EDWARD VALLEJO ; [facility] Current Medications (continue as prescribed) HYDROcodone-Acetaminophen 5- 325 MG Oral Tablet 12/24/2023 Provider: EDWARD VALLEJO Diagnosis: Spinal stenosis, lumbar region with neurogenic claudication One tablet twice a day as ne eded for severe pain Last Documented On 4 11:32AM [facility] ; [facility] Advil Dual Action 125-250 MG Oral Tablet 06/21/2023 Provider: Diagnosis: Last Documented On 06/21/2023 4:08PM By Aruna KINSEY ; [facility] Past Medications on file DULoxetine HCl 30 MG Oral Capsule Delayed Release Particles 11/01/2023 - 04/29/2024 Provider: SPENCER DUBOIS PA-C Diagnosis: Chronic pain syndrome TAKE 1 CAPSULE BY MOUTH DAILY Last Documented On 4 7:52AM By SPENCER DUBOIS PA-C ; [facility] amLODIPine Besylate 2.5 MG Oral Tablet 10/29/2023 - 04/26/2024 Provider: SPENCER DUBOIS PA-C Diagnosis: Essential (prima ry) hypertension One tablet daily Last Documented On 4 4:38PM By SPENCER DUBOIS PA-C ; [facility] Omeprazole 40 MG Oral Capsule Delayed Release 08/19/2023 - 02/15/2024 Provider: SPENCER RICKS PA-C Diagnosis: TAKE 1 CAPSULE BY MOUTH EVERY MORNING Last Documented On 4 7:48AM By SPENCER DUBOIS PA-C ; [facility] Levothyroxine Sodium 100 MCG Oral Tablet 07/20/2023 - 01/16/2024 Provider: SPENCER DUBOIS PA-C Diagnosis: Hypothyroidism, unspecified TAKE 1 TABLET BY MOUTH DAILY Last Documented On 4 9:52AM By SPENCER DUBOIS PA-C ; [facility] hydroCHLOROthiazide 25 MG Oral Tablet 06/25/2023 - 12/22/2023 Provider: SPENCER DUBOIS PA-C Diagnosis: Chest pain, unspecified One tablet daily Last Documented On 3 10:01AM By SPENCER DUBOIS PA-C ; [facility] Metoprolol Succinate ER 100 MG Oral Tablet Extended Release 24 Hour 06/25/2023 - 12/22/2023 Provider: SPENCER DUBOIS PA-C Diagnosis: Chest pain, unspecified One tablet daily Last Documented On 3 10:01AM By SPENCER DUBOIS PA-C ; [facility] FLUoxetine HCl 20 MG Oral Tablet 10/13/2022 - 10/28/2022 Provider: SPENCER DUBOIS PA-C Diagnosis: Dysthymic disord er 1 tab QD x7 days, then 1/2 t ab QD x8 days, then stop - weaning off Last Documented On 3 3:22PM By SPENCER DUBOIS PA-C ; [facility] Amoxicillin-Pot Clavulanate 875-125 MG Oral Tablet 06/15/2022 - 06/25/2022 Provider: SPENCER DUBOIS PA-C Diagnosis: Acute maxillary sinusitis, unspecified One tablet twice a day Last Documented On 2 4:59PM By SPENCER DUBOIS PA-C ; [facility] Ondansetron HCl 4 MG Oral Tablet 12/30/2021 - 01/06/2022 Provider: SPENCER SIMMONS PA-C Diagnosis: Nausea 1 every 6 hours as needed Last Documented On 2 4:40PM By SPENCER DUBOIS PA-C ; [facility] Medications Administered Includes: Administered Medications from this encounter No Administered Medications Recorded Results Includes: Results discussed during this encounter No Results Recorded For Specified Dates History of Present Illness Includes: History of Present Illness from this encounter No History of Present Illness Recorded Social History Description Last Updated Tobacco non-user 09/16/2023 Last Documented On 4 1:17PM ; [facility] Difficulty walking 11/24/2021 Last Documented On 4 1:17PM ; [facility] Non-smoker 11/22/2019 Last Documented On 4 1:17PM ; [facility] Poor exercise habits 09/10/2011 Last Documented On 4 1:17PM ; [facility] Sexually active 09/10/2011 Last Documented On 4 1:17PM ; [facility] Sexually active with 2 partners in the l ast year 09/10/2011 Last Documented On 4 1:17PM ; [facility] Social history unchanged 09/04/2009 Last Documented On 4 1:17PM ; [facility] 06/04/2009 Last Documented On 4 1:17PM ; [facility] Smoking Status Unknown Medical History Includes: Medical History addressed during this encounter Description Last Updated Moderate to severe pain 01/22/2022 Last Documented On 4 1:17PM ; [facility] Please list all illnesses/co nditions you have been diagnosed with: Hypothyroidismhypertensiondepressionchronic low back pain 01/22/2022 Last Documented On 4 1:17PM ; [facility] Please list all surgeries: Carpal tunnel bilateral Hysterectomy 01/22/2022 Last Documented On 4 1:17PM ; [facility] Wearing contact lenses 01/22/2022 Last Documented On 4 1:17PM ; [facility] X-rays November 20low [facility] 01/22/2022 Last Documented On 4 1:17PM ; [facility] No recent change in medical history 09/10 Last Documented On 4 1:17PM ; [facility] Aborta 2 09/10/2011 Last Documented On 4 1:17PM ; [facility] Last mammogram date: approx 7 yrs ago Last Documented On 4 1:17PM ; [facility] 4 09/10/2011 Last Documented On 4 1:17PM ; [facility] Last pap smear date 03/05/2010 09/10/2011 Last Documented On 4 1:17PM ; [facility] LMP: 09/05/2011 09/10/2011 Last Documented On 4 1:17PM ; [facility] Para 2 09/10/2011 Last Documented On 4 1:17PM ; [facility] A mammogram was performed Had one at age 39 09/24/2010 Last Documented On 4 1:17PM ; [facility] History of essential hypertension 2009 Last Documented On 4 1:17PM ; [facility] History of hyperlipidemia 02/03/2010 Last Documented On 4 1:17PM ; [facility] Family History Includes: Family History addressed during [...] # Subscriber Relationship Effect collette Dates - [phone] SAMI BARRAZA Self Clinical Notes Includes: Clinical Notes from this encounter * Progress note Date Encounter Last Documented by 10/19/2023 RX ISSUE/REFILL Last documented on 10/19/2023; 3:00 PM, EDWARD MOSQUERA-TEJA; [facility] Active Problems & Conditions [...] one at age 39 [facility] : 4, para 2, and aborta [...]
--- OUTSIDE RECORDS SUMMARY | 2024-08-28 04:36 | XMS_ITS | Clinical Summary ---
Author Organization [facility] Address [address] [place] [address] Phone Care Team Providers Care Stewardesses Teacher Name Role Phone CONRADO ARBOLEDA MD Primary Care Provider [phone] Reason for Visit and Chief Complaint RX ISSUE/REFILL Problems Includes: Problems addressed during this encounter and other active Problems All Visits Onset Date Resolved Date Provider Condition S tatus Chronic Pain Syndrome 10/13/2022 SPENCER DUBOIS PA-C Active Last Documented On 3 3:22PM ; [facility] Persistent Depressive Disord er (Dysthymia) 10/13/2022 SPENCER SIMEON-Solange Active Last Documented On 3 3:22PM ; [facility] 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 10/13/2022 SPENCER SIMEON-C Active Last Documented On 3 3:22PM ; [facility] Sacroiliitis 10/13/2022 SPENCER SIMEON- C Active Last Documented On 3 3:22PM ; [facility] Vitamin D Deficiency 06/15/2022 SPENCER SIMEON-Solange Active Last Documented On 2 4:52PM ; [facility] Chronic Low Back Pain 10/02/2016 CLEMENT BARDALES 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 Active Last Documented On 7 10:22AM ; [facility] Hypothyroidism 02/03/2010 SEAN ABBOTT PA-C Active Last Documented On 0 2:42PM ; [facility] Note: Unchanged Persistent Insomnia 02/03/2010 SEAN ABBOTT PA-C Active Last Documented On 0 2:42PM ; [facility] Note: Unchanged Gerd 12/17/2009 DANIEL MCCARTY CARDIOGRAPH OPERATOR-C Activ e Last Documented On 1 2:35PM ; [facility] Note: Unchanged Hyperlipidemia 12/17/2009 SEAN ABBOTT PA-C Active Last Documented On 0 3:58PM ; [facility] Note: Unchanged Essential Hypertension Benign 12/17/2009 SEAN ABBOTT PA-C Active Last Documented On 0 3:58PM ; [facility] Note: Unchanged Obesity 12/17/2009 SEAN SIMEON-C Acti ve Last Documented On 0 3:58PM ; [facility] Note: Unchanged Plan [...] On 4 2:09PM By EDWARD VALLEJO ; [facility] Current Medications (continue as prescribed) HYDROcodone-Acetaminophen 5- 325 MG Oral Tablet 12/24/2023 Provider: EDWARD VALLEJO Diagnosis: Spinal stenosis, lumbar region with neurogenic claudication One tablet twice a day as ne eded for severe pain Last Documented On 4 11:32AM By EDWARD VALLEJO ; [facility] Advil Dual Action 125-250 MG Oral Tablet 06/21/2023 Provider: Diagnosis: Last Documented On 06/21/2023 4:08PM By Aruna KINSEY ; [facility] Past Medications on file DULoxetine HCl 30 MG Oral Capsule Delayed Release Particles 11/01/2023 - 04/29/2024 Provider: SPENCER DUBOIS PA-C Diagnosis: Chronic pain syndrome TAKE 1 CAPSULE BY MOUTH DAILY Last Documented On 4 7:52AM By SPENCER DUBOIS PA-C ; [facility] amLODIPine Besylate 2.5 MG Oral Tablet 10/29/2023 - 04/26/2024 Provider: SPENCER DUBOIS PA-C Diagnosis: Essential (prima ry) hypertension One tablet daily Last Documented On 4 4:38PM By SPENCER DUBOIS PA-C ; [facility] Omeprazole 40 MG Oral Capsule Delayed Release 08/19/2023 - 02/15/2024 Provider: SPENCER RICKS PA-C Diagnosis: TAKE 1 CAPSULE BY MOUTH EVERY MORNING Last Documented On 4 7:48AM By SPENCER DUBOIS PA-C ; [facility] Levothyroxine Sodium 100 MCG Oral Tablet 07/20/2023 - 01/16/2024 Provider: SPENCER DUBOIS PA-C Diagnosis: Hypothyroidism, unspecified TAKE 1 TABLET BY MOUTH DAILY Last Documented On 4 9:52AM By SPENCER DUBOIS PA-C ; [facility] hydroCHLOROthiazide 25 MG Oral Tablet 06/25/2023 - 12/22/2023 Provider: SPENCER DUBOIS PA-C Diagnosis: Chest pain, unspecified One tablet daily Last Documented On 3 10:01AM By SPENCER DUBOIS PA-C ; [facility] Metoprolol Succinate ER 100 MG Oral Tablet Extended Release 24 Hour 06/25/2023 - 12/22/2023 Provider: SPENCER DUBOIS PA-C Diagnosis: Chest pain, unspecified One tablet daily Last Documented On 3 10:01AM By SPENCER DUBOIS PA-C ; [facility] FLUoxetine HCl 20 MG Oral Tablet 10/13/2022 - 10/28/2022 Provider: SPENCER DUBOIS PA-C Diagnosis: Dysthymic disord er 1 tab QD x7 days, then 1/2 t ab QD x8 days, then stop - weaning off Last Documented On 3 3:22PM By SPENCER DUBOIS PA-C ; [facility] Amoxicillin-Pot Clavulanate 875-125 MG Oral Tablet 06/15/2022 - 06/25/2022 Provider: SPENCER DUBOIS PA-C Diagnosis: Acute maxillary sinusitis, unspecified One tablet twice a day Last Documented On 2 4:59PM By SPENCER DUBOIS PA-C ; [facility] Ondansetron HCl 4 MG Oral Tablet 12/30/2021 - 01/06/2022 Provider: SPENCRE SIMMONS PA-C Diagnosis: Nausea 1 every 6 hours as needed Last Documented On 2 4:40PM By SPENCER DUBOIS PA-C ; [facility] Medications Administered Includes: [...] 10/29/2023 Last Documented On 4 11:52AM ; [facility] Number of times used recreat ional drug/ prescription drug for nonmedical reason. None 10/29/2023 Last Documented On 4 11:52AM ; [facility] Tobacco non-user 09/16/2023 Last Documented On 4 11:52AM ; [facility] Difficulty walking 11/24/2021 Last Documented On 4 11:52AM ; [facility] Non-smoker 11/22/2019 Last Documented On 4 11:52AM ; [facility] Poor exercise habits 09/10/2011 Last Documented On 4 11:52AM ; [facility] Sexually active 09/10/2011 Last Documented On 4 11:52AM ; [facility] Sexually active with 2 partners in the l ast year 09/10/2011 Last Documented On 4 11:52AM ; [facility] Social history unchanged 09/04/2009 Last Documented On 4 11:52AM ; [facility] 06/04/2009 Last Documented On 4 11:52AM ; [facility] Smoking Status Unknown Medical History Includes: Medical History addressed during this encounter Description Last Updated Moderate to severe pain 01/22/2022 Last Documented On 4 11:52AM ; [facility] Please list all illnesses/co nditions you have been diagnosed with: Hypothyroidismhypertensiondepressionchronic low back pain 01/22/2022 Last Documented On 4 11:52AM ; [facility] Please list all surgeries: Carpal tunnel bilateral Hysterectomy 01/22/2022 Last Documented On 4 11:52AM ; [facility] Wearing contact lenses 01/22/2022 Last Documented On 4 11:52AM ; [facility] 20[facility] 01/22/2022 Last Documented On 4 11:52AM ; [facility] No recent change in medical history 09/10 Last Documented On 4 11:52AM ; [facility] Aborta 2 09/10/2011 Last Documented On 4 11:52AM ; [facility] Last mammogram date: approx 7 yrs ago Last Documented On 4 11:52AM ; [facility] 4 09/10/2011 Last Documented On 4 11:52AM ; [facility] Last pap smear date 03/05/2010 09/10/2011 Last Documented On 4 11:52AM ; [facility] LMP: 09/05/2011 09/10/2011 Last Documented On 4 11:52AM ; [facility] Para 2 09/10/2011 Last Documented On 4 11:52AM ; [facility] A mammogram was performed Had one at age 39 09/24/2010 Last Documented On 4 11:52AM ; [facility] History of essential hypertension 2009 Last Documented On 4 11:52AM ; [facility] History of hyperlipidemia 02/03/2010 Last Documented On 4 11:52AM ; [facility] Family History Includes: Family [...] # Subscriber Relationship Effect collette Dates - [phone] SAMI BARRAZA Self Clinical Notes Includes: Clinical Notes from this encounter * Progress note Date Encounter Last Documented by 11/17/2023 RX ISSUE/REFILL Last documented on 11/18/2023; 2:09 PM, EDWARD MOSQUERA-TEJA; [facility] Active Problems & [...] ~ pt phone # for Return call: [phone] ~Last Drug Screen:06/21/24 ~Date/Initials:11/17/23, KMS. History of [...] one at age 39 [facility] : 4, para 2, and aborta 2. [...]
--- OUTSIDE RECORDS SUMMARY | 2024-08-28 04:36 | XMS_ITS | Clinical Summary ---
Author Organization [facility] Address [address] [place] [address] Phone Care Team Providers Care Manufacturing Production Manager Name Role Phone CONRADO ARBOLEDA MD Primary Care Provider [phone] Reason for Visit and Chief Complaint The Chief Complaint is: RECHECK BP Problems Includes: Problems addressed during this encounter and other active Problems Current Visit Onset Date Resolved Date Provider Condbettyo n Status Essential Hypertension Benign 12/17/2009 SEAN ABBOTT PA-C Active Last Documented On 12/17/2009 3:58PM ; [facility] Note: Unchanged Obesity 12/17/2009 SEAN ABBOTT PA-C Active Last Documented On 12/17/2009 3:58PM ; [facility] Note: Unchanged Past Visits Onset Date Resolved Date Provider Condition Status Chronic Pain Syndrome 10/13/2022 SPENCER DUBOIS PA-C Active Last Documented On 3 3:22PM ; [facility] Persistent Depressive Disord er (Dysthymia) 10/13/2022 SPENCER DUBOIS PA-C Active Last Documented On 3 3:22PM ; [facility] 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 10/13/2022 SPENCER DUBOIS PA-C Active Last Documented On 3 3:22PM ; [facility] Sacroiliitis 10/13/2022 SPENCER DUBOIS PA- C Active Last Documented On 3 3:22PM ; [facility] Vitamin D Deficiency 06/15/2022 SPENCER MARTINEZ PA-C Active Last Documented On 2 4:52PM ; [facility] Chronic Low Back Pain 10/02/2016 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 Last Documented On 7 10:22AM ; [facility] Hypothyroidism 02/03/2010 SEAN ABBOTT PA-C Active Last Documented On 0 2:42PM ; [facility] Note: Unchanged Persistent Insomnia 02/03/2010 SEAN ABBOTT PA-C Active Last Documented On 0 2:42PM ; [facility] Note: Unchanged Gerd 12/17/2009 DANIEL MCCARTY MACHINE ADJUSTER HELPER-C Activ e Last Documented On 1 2:35PM ; [facility] Note: Unchanged Hyperlipidemia 12/17/2009 SEAN ABBOTT PA-C Active Last Documented On 0 3:58PM ; [facility] Note: Unchanged Plan of Treatment - Return to the clinic if condition worsens or new symptoms arise - Last Documented On 10/29/2023 4:30PM ; [facility] - Follow-up visit as needed with an office visit. - Last Documented On 10/29/2023 4:30PM ; [facility] - Patient to call if problem develops - Last Documented On 10/29/2023 4:30PM ; [facility] Assessments Includes: Assessments from this encounter Findings - [I10 - Essential (primary) hypertension] Benign essential hypertension - Last Documented On 10/29/2023 4:30PM ; [facility] - [E66.9 - Obesity, unspecified] Obesity - Last Documented On 10/29/2023 4:30PM ; [facility] - [M72.2 - Plantar fascial fibromatosis] Plantar fasciitis of right foot - Last Documented On 10/29/2023 4:30PM ; [facility] Medical Equipment - Implanted Devices Includes: Current Devices No Medical Equipment Recorded Medications Includes: Medications discussed during this encounter and other current Medications New / Renewed during this visit SPENCER DUBOIS PA-C on 10/29/2023 amLODIPine Besylate 2.5 MG Oral Tablet Provider: SPENCER DUBOIS PA-C 30 day supply: 30 tablet, 5 refills Diagnosis: Essential (primary) hypertension One tablet daily Pharmacy: [facility] [address], [address] - Last Documented On 4 4:38PM By SPENCER DUBOIS PA-C ; [facility] Current Medications (continue as prescribed) HYDROcodone-Acetaminophen 5- 325 MG Oral Tablet 12/24/2023 Provider: EDWARD VALLEJO Diagnosis: Spinal stenosis, lumbar region with neurogenic claudication One tablet twice a day as ne eded for severe pain Last Documented On 4 11:32AM By EDWARD VALLEJO ; [facility] Advil Dual Action 125-250 MG Oral Tablet 06/21/2023 Provider: Diagnosis: Last Documented On 06/21/2023 4:08PM By Aruna KINSEY ; [facility] Past Medications on file DULoxetine HCl 30 MG Oral Capsule Delayed Release Particles 11/01/2023 - 04/29/2024 Provider: SPENCER DUBOIS PA-C Diagnosis: Chronic pain syndrome TAKE 1 CAPSULE BY MOUTH DAILY Last Documented On 4 7:52AM By SPENCER DUBOIS PA-C ; [facility] Omeprazole 40 MG Oral Capsule Delayed Release 08/19/2023 - 02/15/2024 Provider: SPENCER RICKS PA-C Diagnosis: TAKE 1 CAPSULE BY MOUTH EVERY MORNING Last Documented On 4 7:48AM By SPENCER DUBOIS PA-C ; [facility] Levothyroxine Sodium 100 MCG Oral Tablet 07/20/2023 - 01/16/2024 Provider: SPENCER DUBOIS PA-C Diagnosis: Hypothyroidism, unspecified TAKE 1 TABLET BY MOUTH DAILY Last Documented On 4 9:52AM By SPENCER DUBOIS PA-C ; [facility] hydroCHLOROthiazide 25 MG Oral [...] 3 10:01AM By SPENCER DUBOIS PA-C ; [facility] FLUoxetine HCl 20 MG Oral Tablet 10/13/2022 - 10/28/2022 Provider: SPENCER DUBOIS PA-C Diagnosis: Dysthymic disord er 1 tab QD x7 days, then 1/2 t ab QD x8 days, then stop - weaning off Last Documented On 3 3:22PM By SPENCER DUBOIS PA-C ; [facility] Amoxicillin-Pot Clavulanate 875-125 MG Oral Tablet 06/15/2022 - 06/25/2022 Provider: SPENCER DUBOIS PA-C Diagnosis: Acute maxillary sinusitis, unspecified One tablet twice a day Last Documented On 2 4:59PM By SPENCER DUBOIS PA-C ; [facility] Ondansetron HCl 4 MG Oral Tablet 12/30/2021 - 01/06/2022 Provider: SPENCER SIMMONS PA-C Diagnosis: Nausea 1 every 6 hours as needed Last Documented On 2 4:40PM By SPENCER DUBOIS PA-C ; [facility] Medications Administered Includes: Administered Medications from this encounter No Administered Medications Recorded Vital Signs Includes: Vital Signs from this encounter Vital Name 10/29/2023 04:07P Blood Pressure Sitting (mmHg) 110/88 Pulse Rate-Sitting (bpm) 94 Respiration Rate (breaths/min) 20 Temp-Oral (F) 98.1 Height (in) 64.5 Weight (lb) 248 Body Mass Index 41.9 Body Surface Area 2.2 Last Documented: On 10/29/2023 4:11PM ; [facility] Results Includes: Results discussed during this encounter [...] 10/29/2023 Last Documented On 4 4:30PM ; [facility] Not recovering alcoholic 10/29/2023 Last Documented On 4 4:30PM ; [facility] Not recovering from substance abuse 10/10 Last Documented On 4 4:30PM ; [facility] Number of times used recreat ional drug/ prescription drug for nonmedical reason. None 10/29/2023 Last Documented On 4 4:30PM ; [facility] Tobacco non-user 09/16/2023 Last Documented On 4 4:09PM ; [facility] No consumption of alcohol 01/22/2022 Last Documented On 4 4:09PM ; [facility] Not using drugs 01/22/2022 Last Documented On 4 4:09PM ; [facility] Difficulty walking 11/24/2021 Last Documented On 4 4:09PM ; [facility] Non-smoker 11/22/2019 Last Documented On 4 4:09PM ; [facility] No caffeine use 09/10/2011 Last Documented On 4 4:09PM ; [facility] Poor exercise habits 09/10/2011 Last Documented On 4 4:09PM ; [facility] Sexually active 09/10/2011 Last Documented On 4 4:09PM ; [facility] Sexually active with 2 partners in the l ast year 09/10/2011 Last Documented On 4 4:09PM ; [facility] Social history unchanged 09/04/2009 Last Documented On 4 4:09PM ; [facility] 06/04/2009 Last Documented On 4 4:09PM ; [facility] Smoking Status Unknown Procedures and Surgical History Includes: Procedures from this encounter Procedures Code Diagnosis Performing Provider Service L ocation Service Date medication instruction Last Documented On 4 4:10PM ; [facility] continue current medication Last Documented On 4 4:10PM ; [facility] plan of care reviewed and agreed to Last Documented On 4 4:10PM ; [facility] risks, benefits, and limitations discuss ed and understood Last Documented On 4 4:10PM ; [facility] review of medications documented 1160F Last Documented On 4 4:11PM ; [facility] Clinical summary provided to patient Last Documented On 4 4:10PM ; [facility] Medical History Includes: Medical History addressed during this encounter No Medical History Recorded Family History Includes: Family History addressed during this encounter Description Last Updated Maternal history of Arthritis 01/22/2022 Last Documented On 4 4:09PM ; [facility] Maternal history of family history of is chemic heart disease 01/22/2022 Last Documented On 4 4:09PM ; [facility] Paternal history of family history of is chemic heart disease 01/22/2022 Last Documented On 4 4:09PM ; [facility] Paternal history of stroke/paralysis Last Documented On 4 4:09PM ; [facility] Family history unchanged 10/02/2016 Last Documented On 4 4:09PM ; [facility] Maternal history of hypertension 016 Last Documented On 4 4:09PM ; [facility] Maternal history of thyroid disorder 12/2015 Last Documented On 4 4:09PM ; [facility] Paternal history of heart disease 2015 Last Documented On 4 4:09PM ; [facility] Paternal history of hypertension 016 Last Documented On 4 4:09PM ; [facility] Heart disease 06/04/2009 Last Documented On 4 4:09PM ; [facility] Review of Systems Includes: Review of Systems [...] Time Diagnosis CHECK UP SPENCER DUBOIS PA-C [facility] 10/29/19 24 4:06PM 4:25PM Essential Hypertension Benign,Plantar Fasciitis Right,Obesity Insurance Includes: Active Insurance Policies Plan Name Member ID Group # Subscriber Relationship Effect collette Dates - [id number] SAMI BARRAZA Self Clinical Notes Includes: Clinical Notes from this encounter * Progress note Date Encounter Last Documented by 10/29/2023 CHECK UP Last documented on 10/29/2023; 4:30 PM, SPENCER DUBOIS PA-C; [facility] Active Problems & Conditions [...]
--- OUTSIDE RECORDS SUMMARY | 2024-08-28 04:37 | XMS_ITS | Clinical Summary ---
Author Organization [facility] Address [address] [place] [address] Phone Care Team Providers Care Gut Snatcher Name Role Phone CONRADO ARBOLEDA MD Primary Care Provider [phone] Reason for Visit and Chief Complaint The Chief Complaint is: Elevated BP recently Problems Includes: Problems addressed during this encounter and other active Problems Current Visit Onset Date Resolved Date Provider Roger piper Status Chronic Pain Syndrome 10/13/2022 SPENCER DUBOIS PA-C Active Last Documented On 3 3:22PM ; [facility] Persistent Depressive Disord er (Dysthymia) 10/13/2022 SPENCER DUBOIS PA-C Active Last Documented On 3 3:22PM ; [facility] Hypothyroidism 02/03/2010 SEAN POLANCORIS PA-C Active Last Documented On 0 2:42PM ; [facility] Note: Unchanged Persistent Insomnia 02/03/2010 SEAN POLANCORIS PA-C Active Last Documented On 0 2:42PM ; [facility] Note: Unchanged Gerd 12/17/2009 DANIEL MCCARTY [employer] INTERN-C Activ e Last Documented On 1 2:35PM ; [facility] Note: Unchanged Hyperlipidemia 12/17/2009 SEAN Cecil POLANCOABBOTT PA-C Active Last Documented On 0 3:58PM ; [facility] Note: Unchanged Essential Hypertension Benign 12/17/2009 SEAN Cecil POLANCOABBOTT PA-C Active Last Documented On 0 3:58PM ; [facility] Note: Unchanged Obesity 12/17/2009 SEAN ABBOTT PA-C Acti ve Last Documented On 0 3:58PM ; [facility] Note: Unchanged Past Visits Onset Date Resolved Date Provider Condition Status 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 10/13/2022 SPENCER DUBOIS PA-C Active Last Documented On 3 3:22PM ; [facility] Sacroiliitis 10/13/2022 SPENCER Narvaez Active Last Documented On 3 3:22PM ; [facility] Vitamin D Deficiency 06/15/2022 SPENCER MARTINEZ PA-C Active Last Documented On 2 4:52PM ; [facility] Chronic Low Back Pain 10/02/2016 CLEMENT BARDALES PMHNP-BC [employer] INTERN-BC Active Last Documented On 7 10:22AM ; [facility] Plan of Treatment - Weight loss diet - Last Documented On 10/08/2023 10:10AM ; [facility] - Return to the clinic if condition worsens or new symptoms arise - Last Documented On 10/08/2023 10:10AM ; [facility] - Document weight weekly - Last Documented On 10/08/2023 10:10AM ; [facility] - Follow-up visit in 1-2 weeks with an office visit - Last Documented On 10/08/2023 10:10AM ; [facility] - Follow-up visit as needed with an office visit. - Last Documented On 10/08/2023 10:10AM ; [facility] - Patient to call if problem develops - Last Documented On 10/08/2023 10:10AM ; [facility] Discussed amlodipine and its potential ADRs. Follow up in 1-2 weeks for recheck. - Last Documented On 10/08/2023 10:10AM ; [facility] Instructions to patient Lose weight Last Documented On 9:46AM ; [facility] Assessments Includes: Assessments from this encounter Findings - [I10 - Essential (primary) hypertension] Benign essential hypertension - Last Documented On 10/08/2023 10:10AM ; [facility] - [K21.9 - Gastro-esophageal reflux disease without esophagitis] GERD - Last Documented On 10/08/2023 10:10AM ; [facility] - [E78.5 - Hyperlipidemia, unspecified] Hyperlipidemia - Last Documented On 10/08/2023 10:10AM ; [facility] - [E66.9 - Obesity, unspecified] Obesity - Last Documented On 10/08/2023 10:10AM ; [facility] - [E03.9 - Hypothyroidism, unspecified] Hypothyroidism - Last Documented On 10/08/2023 10:10AM ; [facility] - [F34.1 - Dysthymic disorder] Persistent depressive disorder (dysthymia) - Last Documented On 10/08/2023 10:10AM ; [facility] - [G47.00 - Insomnia, unspecified] Persistent insomnia - Last Documented On 10/08/2023 10:10AM ; [facility] - [G89.4 - Chronic pain syndrome] Chronic pain syndrome - Last Documented On 10/08/2023 10:10AM ; [facility] Instructions Includes: Instructions from this encounter Instructions to patient Lose weight Last Documented On 4 9:46AM ; [facility] Medical Equipment - Implanted Devices Includes: Current Devices No Medical Equipment Recorded Medications Includes: Medications discussed during this encounter and other current Medications New / Renewed during this visit SPENCER DUBOIS PA-C on 10/08/2023 amLODIPine Besylate 2.5 MG Oral Tablet Provider: SPENCER DUBOIS PA-C 30 day supply: 30 tablet, 0 refills Diagnosis: Essential (primary) hypertension One tablet daily Pharmacy: [facility] [address] [address] - Last Documented On 4 4:27PM By SPENCER DUBOIS PA-C ; [facility] Current Medications (continue as prescribed) HYDROcodone-Acetaminophen 5- 325 MG Oral Tablet 12/24/2023 Provider: EDWARD VALLEJO Diagnosis: Spinal stenosis, lumbar region with neurogenic claudication One tablet twice a day as ne eded for severe pain Last Documented On 4 11:32AM By EDWARD VALLEJO ; [facility] Advil Dual Action 125-250 MG Oral Tablet 06/21/2023 Provider: Diagnosis: Last Documented On 06/21/2023 4:08PM By Aruna KINSEY ; [facility] Past Medications on file DULoxetine HCl 30 MG Oral Capsule Delayed Release Particles 11/01/2023 - 04/29/2024 Provider: SPENCER DUBOIS PA-C Diagnosis: Chronic pain syndrome TAKE 1 CAPSULE BY MOUTH DAILY Last Documented On 4 7:52AM By SPENCER DUBOIS PA-C ; [facility] amLODIPine Besylate 2.5 MG Oral Tablet 10/29/2023 - 04/26/2024 Provider: SPENCER DUBOIS PA-C Diagnosis: Essential (prima ry) hypertension One tablet daily Last Documented On 4 4:38PM By SPENCER DUBOIS PA-C ; [facility] Omeprazole 40 MG Oral Capsule Delayed Release 08/19/2023 - 02/15/2024 Provider: SPENCER RICKS PA-C Diagnosis: TAKE 1 CAPSULE BY MOUTH EVERY MORNING Last Documented On 4 7:48AM By SPENCER DUBOIS PA-C ; [facility] Levothyroxine Sodium 100 MCG Oral Tablet 07/20/2023 - 01/16/2024 Provider: SPENCER DUBOIS PA-C Diagnosis: Hypothyroidism, unspecified TAKE 1 TABLET BY MOUTH DAILY Last Documented On 4 9:52AM By SPENCER DUBOIS PA-C ; [facility] hydroCHLOROthiazide 25 MG Oral Tablet 06/25/2023 - 12/22/2023 Provider: SPENCER DUBOIS PA-C Diagnosis: Chest pain, unspecified One tablet daily Last Documented On 3 10:01AM By SPENCER DUBOIS PA-C ; [facility] Metoprolol Succinate ER 100 MG Oral Tablet Extended Release 24 Hour 06/25/2023 - 12/22/2023 Provider: SPENCER DUBOIS PA-C Diagnosis: Chest pain, unspecified One tablet daily Last Documented On 3 10:01AM By SPENCER DUBOIS PA-C ; [facility] FLUoxetine HCl 20 MG Oral Tablet 10/13/2022 - 10/28/2022 Provider: SPENCER DUBOIS PA-C Diagnosis: Dysthymic disord er 1 tab QD x7 days, then 1/2 t ab QD x8 days, then stop - weaning off Last Documented On 3 3:22PM By SPENCER DUBOIS PA-C ; [facility] Amoxicillin-Pot Clavulanate 875-125 MG Oral Tablet 06/15/2022 - 06/25/2022 Provider: SPENCER DUBOIS PA-C Diagnosis: Acute maxillary sinusitis, unspecified One tablet twice a day Last Documented On 2 4:59PM By SPENCER DUBOIS PA-C ; [facility] Ondansetron HCl 4 MG Oral Tablet 12/30/2021 - 01/06/2022 Provider: SPENCER SIMMONS PA-C Diagnosis: Nausea 1 every 6 hours as needed Last Documented On 2 4:40PM By SPENCER DUBOIS PA-C ; [facility] Medications Administered Includes: Administered [...] 2.1 Last Documented: On 10/08/2023 9:49AM ; [facility] On 10/08/2023 9:46AM ; [facility] Results Includes: Results discussed during [...] be consistently high. 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 Social History Description Last Updated Tobacco non-user 09/16/2023 Last Documented On 4 9:45AM ; [facility] No consumption of alcohol 01/22/2022 Last Documented On 4 9:45AM ; [facility] Not using drugs 01/22/2022 Last Documented On 4 9:45AM ; [facility] Difficulty walking 11/24/2021 Last Documented On 4 9:45AM ; [facility] Non-smoker 11/22/2019 Last Documented On 4 9:45AM ; [facility] No caffeine use 09/10/2011 Last Documented On 4 9:45AM ; [facility] Poor exercise habits 09/10/2011 Last Documented On 4 9:45AM ; [facility] Sexually active 09/10/2011 Last Documented On 4 9:45AM ; [facility] Sexually active with 2 partners in the l ast year 09/10/2011 Last Documented On 4 9:45AM ; [facility] Social history unchanged 09/04/2009 Last Documented On 4 9:45AM ; [facility] 06/04/2009 Last Documented On 4 9:45AM ; [facility] Smoking Status Unknown Procedures and Surgical History Includes: Procedures from this encounter Procedures Code Diagnosis Performing Provider Service L ocation Service Date medication instruction Last Documented On 4 9:45AM ; [facility] continue current medication Last Documented On 4 9:45AM ; [facility] plan of care reviewed and agreed to Last Documented On 4 9:45AM ; [facility] risks, benefits, and limitations discuss ed and understood Last Documented On 4 9:45AM ; [facility] review of medications documented 1160F Last Documented On 4 9:47AM ; [facility] Clinical summary provided to patient Last Documented On 4 9:45AM ; [facility] Medical History Includes: Medical History addressed during this encounter No Medical History Recorded Family History Includes: Family History addressed during this encounter Description Last Updated Maternal history of Arthritis 01/22/2022 Last Documented On 4 9:45AM ; [facility] Maternal history of family history of is chemic heart disease 01/22/2022 Last Documented On 4 9:45AM ; [facility] Paternal history of family history of is chemic heart disease 01/22/2022 Last Documented On 4 9:45AM ; [facility] Paternal history of stroke/paralysis Last Documented On 4 9:45AM ; [facility] Family history unchanged 10/02/2016 Last Documented On 4 9:45AM ; [facility] Maternal history of hypertension 016 Last Documented On 4 9:45AM ; [facility] Maternal history of thyroid disorder 12/2015 Last Documented On 4 9:45AM ; [facility] Paternal history of heart disease 2015 Last Documented On 4 9:45AM ; [facility] Paternal history of hypertension 016 Last Documented On 4 9:45AM ; [facility] Heart disease 06/04/2009 Last Documented On 4 9:45AM ; [facility] Review of Systems Includes: Review of Systems [...] Time Diagnosis PROBLEM VISIT SPENCER DUBOIS PA-C [facility] 024 9:41AM 10:15AM Essential Hypertension Benign,Obesity, Persistent Depressive Disorder (Dysthymia),Chr onic Pain Syndrome,Gerd,H yperlipidemia,H ypothyroidism,P ersistent Insomnia Insurance Includes: Active Insurance Policies Plan Name Member ID Group # Subscriber Relationship Effect collette Dates 1 - CIG [id number] SAMI BARRAZA Self Clinical Notes Includes: Clinical Notes from this encounter * Progress note Date Encounter Last Documented by 10/08/2023 PROBLEM VISIT Last documented on 10/08/2023; 10:10 AM, SPENCER DUBOIS PA-C; [facility] Active Problems & Conditions [...] be consistently high. 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 Current Medication - Advil Dual Action [...]
[2024-08-28 05:09] LABS: Influenza A QL RT-PCR Negative (Negative); Influenza B QL RT-PCR Negative (Negative); RSV RNA, RT-PCR Negative (Negative); SARS-CoV-2 RNA PCR Negative (Negative)
--- NOTE | 2024-08-28 05:14 | ED_ITS ---
HPI - Nausea/Vomiting/Diarrhea General Chief complaint: Nausea/Vomiting/Diarrhea Stated complaint: n/v/d Time Seen by Provider: 08/28/24 04:22 Source: patient Mode of arrival: ambulatory Limitations: no limitations History of Present Illness HPI Narrative: 5 years old white female came to the ED by private car complaining of nausea, vomiting and diarrhea started at 9:00 p.m. last night. Patient reports vomiting maximum 7 times, diarrhea maximum 7 times. Associated with chills, she denies any fever , abdominal pain, chest pain, shortness of breath, headache. Possible grandkids exposure. History of hypertension hypothyroidism, patient does not smoke or drink or use drugs, could not sleep because of the frequency of vomiting. Related Data Home Medications ?Medication ?Instructions ?Recorded ?Confirmed ?Last Taken ?Type fluoxetine 10 mg capsule (Prozac) 10 mg PO DAILY 08/18/22 08/18/22 Unknown History hydrochlorothiazide 25 mg tablet 25 mg PO DAILY 08/18/22 08/18/22 Unknown History hydrocodone 10 mg-acetaminophen 1 tablet PO Q6-8H PRN Pain 08/18/22 08/18/22 Unknown History 325 mg tablet levothyroxine 100 mcg tablet 100 mcg PO DAILY 08/18/22 08/18/22 Unknown History metoprolol succinate 50 mg 50 mg PO DAILY 08/18/22 08/18/22 Unknown History tablet,extended release 24 hr omeprazole 40 mg capsule,delayed 40 mg PO BID 08/18/22 08/18/22 Unknown History release duloxetine 30 mg capsule,delayed 30 mg PO DAILY 08/28/24 08/28/24 Unknown History release hydrocodone 5 mg-acetaminophen 325 1 tablet PO Q12H PRN pain 08/28/24 08/28/24 Unknown History mg tablet metoprolol succinate 100 mg 100 mg PO DAILY 08/28/24 08/28/24 Unknown History tablet,extended release 24 hr Allergies Allergy/AdvReac Type Severity Reaction Status Date / Time No Known Allergies Allergy Verified 08/28/24 04:24 Review of Systems 2 Review of Systems: All systems reviewed & are unremarkable except as noted in HPI and below PMFSH Past Medical History Medical History Morbid obesity Chronic back pain Surgical History Surgical History History of total abdominal hysterectomy Social History Social History Smoking status: Never smoker Exam 2 Narrative: General appearance: Well-developed, well-nourished Skin: Normal color Head: Normocephalic, nontraumatic Eyes: Clear conjunctiva ENT: Oropharynx normal, ears normal, nose normal Neck: Supple, nontender Chest and respiratory: Airway patent, no respiratory distress, no accessory muscle use Heart: Regular rate/rhythm Abdomen: Soft, nontender, no organomegaly, hyperactive bowel sounds Vascular: Normal peripheral pulses, normal capillary refill. Musculoskeletal: Normal range of motion, nontender back Neurologic: Alert and oriented ?3, STORE PERSON is normal as tested, no gross motor deficit Course Vital Signs Vital signs: Vital Signs Temperature 36.2 C L 08/28/24 04:20 Pulse Rate 128 H 08/28/24 04:20 Respiratory Rate 18 08/28/24 04:20 Blood Pressure 141/96 H 08/28/24 04:20 Pulse Oximetry 97 08/28/24 04:20 Oxygen Delivery Room Air 08/28/24 04:20 Temperature 36.2 C L 08/28/24 04:20 Pulse Rate 85 08/28/24 06:49 Respiratory Rate 16 08/28/24 06:49 Blood Pressure 135/80 08/28/24 06:49 Pulse Oximetry 98 08/28/24 06:49 Oxygen Delivery Room Air 08/28/24 06:49 MDM - Nausea/Vomiting/Diarrhea MDM Narrative Medical decision making narrative: patient came to the ED with nausea, vomiting and diarrhea started 8 hours prior to arrival Vital signs showing heart rate of 128 otherwise within normal limit Physical examination hyperactive bowel sounds Differential diagnosis viral gastroenteritis include norovirus, rotavirus, adenovirus and Astrovirus., dehydration, electrolyte imbalance Respiratory panel came back negative for COVID, RSV and influenza Differential Diagnosis Differential diagnosis: Likely gastroenteritis and dehydration Medical Records Attestation: I reviewed the patient's medical records. Lab Data Attestation: I reviewed the patient's lab results. 08/28/24 06:08 08/28/24 06:08 Labs: Lab Results 08/28/24 08/28/24 Range/Units 04:22 06:08 WBC 9.8 (4.8-10.8) K/mm3 RBC 5.19 (4.20-5.40) M/mm3 Hgb 14.1 (12.0-15.0) g/dL Hct 44.5 (35.0-49.0) % MCV 85.7 (78.0-102.0) fL MCH 27.2 (27.0-31.0) pg MCHC 31.7 L (32-36) g/dL RDW 12.9 (11.6-14.4) % Plt Count 264 (150-420) K/mm3 MPV 9.9 (9.2-11.8) fl Immature Gran % (Auto) 0.5 H (0.0-0.0) % Neut % (Auto) 88.3 H (50.0-70.0) % Lymph % (Auto) 4.9 L (18.0-42.0) % Jack % (Auto) 5.2 (2.0-11.0) % Eos % (Auto) 0.8 L (1.0-6.0) % Baso % (Auto) 0.3 (0.0-1.0) % Lymph # (Auto) 0.48 L (1.10-4.50) K/mm3 Jack # (Auto) 0.51 (0.10-0.90) K/mm3 Eos # (Auto) 0.08 (0.02-0.50) K/mm3 Baso # (Auto) 0.03 (0.00-0.10) K/mm3 Abs Immat Gran (auto) 0.05 H (0.00-0.00) K/mm3 Absolute Neuts (auto) 8.60 H (1.70-7.20) K/mm3 Absolute Nucleated RBC 0.00 (0.00-0.00) K/mm3 Nucleated RBC % 0.0 (0-0.0) % Sodium 140 (136-145) mmol/L Potassium 3.9 (3.5-5.1) mmol/L Chloride 101 (98-108) mmol/L Carbon Dioxide 32 (21-32) mmol/L Anion Gap 7 (4-12) mmol/L BUN 16 (7-18) mg/dL Creatinine 0.81 (0.55-1.02) mg/dL Estim Creat Clear Calc 79 ml/min Estimated GFR > 60 (59 - ) Glucose 126 H (70-99) mg/dL Calculated Osmolality 293 (285-295) mOsm/kg Calcium 8.4 L (8.5-10.1) mg/dL Total Bilirubin 0.4 (0.00-1.00) mg/dL AST 18 (15-37) U/L ALT 24 (14-59) U/L Alkaline Phosphatase 97 (46-116) U/L Total Protein 7.3 (6.4-8.2) g/dL Albumin 3.5 (3.4-5.0) g/dL Influenza A (RT-PCR) Negative (Negative) Influenza B (RT-PCR) Negative (Negative) RSV (RT-PCR) Negative (Negative) SARS-CoV-2 RNA (RT-PCR) Negative (Negative) Critical Care Time Critical Care Time Critical Care Time: No Discharge Plan Discharge Clinical Impression: Gastroenteritis Patient Disposition: Home, Self-Care Condition: Stable Instructions: Gastroenteritis (ED) Additional Instructions: Return if symptoms are worsening , call your family physician for appointment, take Tylenol as as needed for aches and pain, continue home medications. Patient Language: Setswana Prescriptions: New ondansetron 4 mg tablet,disintegrating 4 mg PO Q4H 0 Days Qty: 10 0RF Rx Instructions: 1st dose 1-2 hr before radiation No Action hydrocodone-acetaminophen 5-325 mg tablet 1 tablet PO Q12H PRN (Reason: pain) metoprolol succinate 100 mg tablet extended release 24 hr 100 mg PO DAILY duloxetine 30 mg capsule,delayed release(DR/EC) 30 mg PO DAILY metoprolol succinate 50 mg tablet extended release 24 hr 50 mg PO DAILY hydrocodone-acetaminophen 10-325 mg tablet 1 tablet PO Q6-8H PRN (Reason: Pain) omeprazole 40 mg capsule,delayed release(DR/EC) 40 mg PO BID levothyroxine 100 mcg tablet 100 mcg PO DAILY fluoxetine [Prozac] 10 mg Capsule 10 mg PO DAILY hydrochlorothiazide 25 mg Tablet 25 mg PO DAILY Follow-up/Referrals: Maxim,MD Cruz [Primary Care Provider] -
[2024-08-28] MEDS: SODIUM CHLORIDE 0.9% IV 1,000 ML 999 ML IV CONT ×2 (05:25→06:03)
[2024-08-28] MEDS: ONDANSETRON INJ 4 MG/2 ML VIAL IV PUSH ×2 (05:25→06:20)
[2024-08-28 06:13] LABS: Basophils Absolute Auto 0.03 K/mm3 (0.00-0.10); Basophils Percent Auto 0.3 % (0.0-1.0); Eosinophils Absolute Auto 0.08 K/mm3 (0.02-0.50); Eosinophils Percent Auto 0.8 % (1.0-6.0); Hematocrit 44.5 % (35.0-49.0); Hemoglobin 14.1 g/dL (12.0-15.0); Immature Granulocyte Absolute 0.05 K/mm3 (0.00-0.00); Immature Granulocyte Percent A 0.5 % (0.0-0.0); Lymphocytes Absolute Auto 0.48 K/mm3 (1.10-4.50); Lymphocytes Percent Auto 4.9 % (18.0-42.0); Mean Corpuscular HGB Conc 31.7 g/dL (32-36); Mean Corpuscular Hemoglobin 27.2 pg (27.0-31.0); Mean Corpuscular Volume 85.7 fL (78.0-102.0); Mean Platelet Volume 9.9 fl (9.2-11.8); Monocytes Absolute Auto 0.51 K/mm3 (0.10-0.90); Monocytes Percent Auto 5.2 % (2.0-11.0); Neutrophils Percent Auto 88.3 % (50.0-70.0); Platelet Count Result 264 K/mm3 (150-420); Red Blood Count 5.19 M/mm3 (4.20-5.40); Red Cell Distribution Width 12.9 % (11.6-14.4); White Blood Count 9.8 K/mm3 (4.8-10.8)
[2024-08-28 06:30] LABS: Alanine Aminotransferase 24 U/L (14-59); Albumin Level 3.5 g/dL (3.4-5.0); Alkaline Phosphatase 97 U/L (46-116); Anion Gap 7 mmol/L (4-12); Aspartate Amino Transferase 18 U/L (15-37); Bilirubin,Total 0.4 mg/dL (0.00-1.00); Blood Urea Nitrogen 16 mg/dL (7-18); Calcium 8.4 mg/dL (8.5-10.1); Carbon Dioxide 32 mmol/L (21-32); Chloride 101 mmol/L (98-108); Estimated CRCL calculation 79 ml/min; Estimated Glomerular Filt Rate > 60; Glucose 126 mg/dL (70-99); Osmolality Calculated 293 mOsm/kg (285-295); Potassium 3.9 mmol/L (3.5-5.1); Sodium 140 mmol/L (136-145); Total Protein 7.3 g/dL (6.4-8.2)
[2024-08-28 06:49] VITALS: BP 135/80; PULSE 85; RESP 16; O2SAT 98
== END 2024-08-28 06:50 | disposition home or self-care (01) ==
PROVIDERS: Emergency Provider Emergency Medicine; PCP Family Medicine
DX: K52.9 Noninfective gastroenteritis and colitis, unspecified (principal); I10 Essential (primary) hypertension; E03.9 Hypothyroidism, unspecified; Z20.822 Contact with and (suspected) exposure to COVID-19
CPT/HCPCS: 36415; 80053; 85025; 87637; 96361; 96374; 96376; 99284; J2405; J7030